=== PATIENT | female | born 1990 | race Caucasian/White ===

== ENCOUNTER → 2018-07-01 | Outpatient (CLI) | payer OTHER, SELFPAY ==
[2018-07-01 15:48] LABS: Hematocrit 36.5 % (37-47); Hemoglobin 12.3 g/dl (12.0-15.0); Mean Corp Hgb Conc 33.7 g/gl (32-36); Mean Corpuscular Hgb 30.8 pg (27.0-32.0); Mean Corpuscular Volume 91.3 fL (81-99); Mean Platelet Vol. 9.2 fl (6.2-12.0); Platelet Count 264 K/mm3 (150-450); RBC Distribution Width CV 13.2 % (11.6-14.6); RBC Distribution Width SD 43.9 fl (35.1-43.9)
[2018-07-01 15:50] LABS: Scan Indicated on CBC? Y/N NO
[2018-07-01 16:04] LABS: Glucose Challenge Gest 1H 50g 117 mg/dL (70-140)
== END | disposition home or self-care (01) ==
PROVIDERS: Visit Provider Obstetrics & Gynecology
DX: Z34.83 Encounter for supervision of other normal pregnancy, third trimester (principal)
CPT/HCPCS: 36415; 82950; 85027

== ENCOUNTER → 2018-07-29 10:26 | Outpatient (CLI) | payer OTHER, SELFPAY | LOC: LABSPEC 10:27 | PROVIDERS: Visit Provider Obstetrics & Gynecology | DX: Z36.85 Encounter for antenatal screening for Streptococcus B (principal) | CPT/HCPCS: 87081 ==

== ENCOUNTER → 2018-08-10 17:20 | Outpatient (CLI) | payer OTHER, SELFPAY | PROVIDERS: Referring Provider Obstetrics & Gynecology; Visit Provider Obstetrics & Gynecology | DX: Z36.85 Encounter for antenatal screening for Streptococcus B (principal) | CPT/HCPCS: 87081 ==

== ENCOUNTER 2018-09-17 19:12 | Inpatient (IN) | payer OTHER, SELFPAY ==
--- NOTE | 2018-09-16 14:49 | PCM.HPOB.BLA ---
History and Physical Date of Admission: 09/17/18 OB HISTORY AND PHYSICAL EXAMINATION History of this : 28 yo female Ab0 with EDC 09/09/2018 by 6 weeks Ultrasound, presents to Labor and Delivery for induction of labor postdates and oligohydramnios at 41 1/7 wk EGA. care remarkable for : Blood Type - A POS Rubella - IMMUNE 03/01/18 GBS negative. 1.) Prefers natural childbirth, was hoping no induction 2.) Previously declined MSAFP. Declines CF testing 3.) ASCUS Pap, follow up 4.) LATE transfer of care at 30+ wk EGA. Pertinent Past Medical History: negative. Allergies: No Known Allergies Medications: None Review of Systems: Non-contributory PHYSICAL EXAMINATION General Appearence: 28 yo female in no acute distress Vital Signs: AF, VSS Heart: RRR without rubs or gallops Lungs: CTA x 2 Breasts: deferred Abdomen: gravid Pelvis: adequate Cervix: closed, firm, anterior, -3 Presentation: cephalic Fetus: Size: 8# 10 oz EFW by sono 09/16/18 Movement: present Heart: present Impression /Plan: Intrauterine . Induction of labor at 41 1/7 wk for postdates and oligohydramnios. Advised of plan: Cytotec. To possible Turner bulb vs AROM and pitocin. Plan for induction starting on 09/17/18 at 7 pm H and P generated at time of patient encounter 09/16/18 See progress notes for changes. Physician's Signature: Date: Josey Liu MD 09/16/18 1196
[2018-09-17] MEDS: 0.9% Saline Lock 10 ML Syringe IV (19:50)
[2018-09-17 20:08] LABS: Absolute Lymphocyte Count 1.12 X10^3/uL (0.83-4.51); Absolute Neutrophil Count 6.1 X10^3/uL (2.0-7.7); Basophil# 0.03 X10^3/uL; Basophil% 0.4 % (0-1); Eosinophil# 0.11 X10^3/uL; Eosinophils% 1.4 % (0-5); Hematocrit 37.2 % (37-47); Hemoglobin 12.9 g/dL (12.0-15.0); Lymphocyte # 1.12 X10^3/ul (4.0); Mean Corp Hgb Conc 34.7 g/dL (32-36); Mean Corpuscular Hgb 31.2 pg (27.0-32.0); Mean Corpuscular Volume 89.9 fL (81-99); Mean Platelet Vol. 9.3 fl (6.2-12.0); Monocyte# 0.63 X10^3/uL; Monocyte% 7.9 % (0-10); NRBC Flagged by Analyzer 0 % (0-5); Neutrophil # 6.07 X10^3/uL (2.7-7.7); Neutrophil % 75.9 % (47-70); Platelet Count 227 K/mm3 (150-450); RBC Distribution Width CV 12.3 % (11.6-14.6); RBC Distribution Width SD 40.5 fl (35.1-43.9); Red Blood Count 4.14 M/mm3 (4.2-5.4)
[2018-09-17 20:16] VITALS: BMI 25.4
--- NOTE | 2018-09-17 21:23 | PCM.PN.BLA ---
Progress Note LABOR PROGRESS NOTE 28yo G1 @ 41 1/7 wga for IOL. PMH reviewed. AVSS, FHR 150, moderate variability, + accelerations, no decelerations. Cytotec given for unfavorable cervix per plan. Consents previously signed reviewed. Discussed with patient plan of care. Patient given opportunity to ask questions and questions answered to her satisfaction. Maternal and statuses reassuring.
[2018-09-18] MEDS: Lactated Ringers 1,000 ML 50 ML IV ×5 (01:39→22:20)
--- NOTE | 2018-09-18 09:36 | PCM.PN.BLA ---
Progress Note LABOR PROGRESS NOTE Reports strengthening contractions. + FM, some spotting. AVSS GEN - NAD, AAO x 3 FHR 150, moderate variability, , +10 x 10 accelerations, there is a 1 minute deceleration nadiring to 125 with late timing. TOCO 2/10 min A/P: 28yo G1 @ 41 2/7 wga, IOL with oligohydramnios, Cat II FHR -EFM reviewed - pt with Cat I-II FHR overall. Reassuring overall at this time with no recurrent decelerations. -Patient will finish break this am for food and shower, then plan to resume induction. -Recommend burrows bulb, discussed how performed, potential risks including amniotomy, abruption, spotting/bleeding, pain. -Patient in agreement with plan.
[2018-09-18] MEDS: 0.9% Normal Saline 100 ML IV.SOLN. INTRA-UTER (11:03)
--- NOTE | 2018-09-18 11:12 | PCM.PN.BLA ---
Progress Note LABOR PROGRESS NOTE No complaints. FHR 155 moderate variability, + accelerations, no decelerations TOCO 2/10 min SVE 1/60/-3, moderate and midposition A/P: 28yo G1 @ 41 2/7wga, IOL, Cat I FHR -Turner bulb placed, pt tolerated well -Observe for 1-2 hours, if no regular contractions will consider repeat dose of cytotec versus pitocin. - status reassuring
[2018-09-18] MEDS: Ondansetron 4 MG/2 ML Vial IV ×2 (11:41→17:02)
[2018-09-18] MEDS: Oxytocin 30 units/NS 500 ml 30 UNITS/500 ML IV.SOLN IV (13:56)
[2018-09-18] MEDS: fentaNYL-bupivacaine (epidural) 100 ML BAG EPIDURAL ×2 (18:40→23:09)
--- NOTE | 2018-09-18 19:13 | PCM.PN.BLA ---
Progress Note LABOR PROGRESS NOTE Pain improved with epidural, but limited relief on the left side. AVSS GEN - NAD, AAO x 3 FHr 130, moderate variability, + accelerations, + variable decelerations TOCO 3-4/10 min SVE 5/80/-2, midposition, soft A/P: 28yo G1 @ 41 2/7wga, IOL, Cat II FHR - status overall reassuring with moderate variability. Pitocin halved during epidural - unclear if FHR decelerations versus maternal heart rate observed during epidural given discontinuity. Will maintain pitocin at halved dose now. -SVE unchanged from prior. Discussed amniotomy. Patient declines at this time will plan to repeat exam in 2 hours and again consider amniotomy if cervix unchanged at that time. -Maternal status reassuring.
[2018-09-18] MEDS: Amnioinfusion- 0.9% NS 1,000 ML IV.SOLN. 300 ML INTRA-UTER (21:34)
[2018-09-18] MEDS: CHLORHEXIDINE GLUC 2% CLOTH 1 EACH TOWELETTE TOPICAL (22:45)
--- NOTE | 2018-09-18 23:00 | PCM.PN.BLA ---
Progress Note LABOR PROGRESS NOTE Patient comfortable with epidural. VSS GEN - NAD, AAO x 3 FHR - 125, moderate variability, + accelerations, + early decelertion, + variable deceleration TOCO 3/10 min SVE 6/80/-2 A/P: 28yo G1 @ 41 2/7wga with Cat II FHR -s/p amnioinfusion with initial improvement of variable decelerations, followed by series of prolonged decelerations each approximately 2 minutes. Pitocin discontinued, patient repositioned and O2 supplementation administered with improvement of FHR tracing and resolution of prolonged decelerations. -Discussed with patient section indications. Reviewed how performed, surgical r/b including but not limited to pain, bleeding complications, infection, injury to surrounding organs, need for further surgery, VTE, scarring as well potential effects on future and delivery including abnormal placentation with associated increased risks. Blood transfusion acceptable. Patient given opportunity to ask questions and questions answered to her satisfaction. -Will continue to observe at this time.
--- NOTE | 2018-09-18 23:55 | PCM.PN.BLA ---
Progress Note LABOR PROGRESS NOTE Tanja relates epidural more dense on right side. AVSS GEN - NAD, AAO x 3 FHR 120, moderate variability, + accelerations, no decelerations TOCO 3/10 min SVE deferred A/P: 28yo G1 @ 41 2/7wga with Cat I FHR -Reviewed with patient pitocin indications, benefits, risks and patient understands section as alternative. Following discussion, will resume pitocin. -Monitor closely.
[2018-09-19] VITALS (12 sets, daily range): BP systolic 86–120; BP diastolic 40–67; PULSE 86–114; RESP 15–18; TEMP 36.7–37.3; O2SAT 95–98
[2018-09-19] MEDS: fentaNYL-bupivacaine (epidural) 100 ML BAG EPIDURAL ×3 (03:48→13:41)
[2018-09-19] MEDS: Lactated Ringers 1,000 ML 50 ML IV ×2 (07:15→12:30)
--- NOTE | 2018-09-19 08:45 | PCM.PN.BLA ---
Progress Note LABOR PROGRESS NOTE Painfulness returning to left side. Reports right foot had some tingling previously and was swollen. Denies foot or leg pain. AVSS GEN - NAD, AAO x 3 FHR 140, moderate variability, + variable decelerations, no accelerations TOCO 3/10 min SVE 9/90/0 per recent RN exam EXT - trace LE edema of right foot and ankle, no cords palpable at calf or knee - No left lower extremity edema or cords felt A/P: 28yo G1 @ 41 3/7wga in active labor, meconium present with Cat II FHR -FHR variability maintained and overall reassuring -Will continue in labor -Will monitor lower extremities - tingling may be 2/2 epidural also
--- NOTE | 2018-09-19 12:30 | PCM.PN.BLA ---
Progress Note LABOR PROGRESS NOTE AVSS FHR 145, moderate variability, no accelerations, no decelerations TOCO 4/10 min SVE FD/+1 per RN WS exam 28yo G1 @ 41 3/7wga in labor, meconium, Cat II FHR -Overall reassuring status -Will start pushing
[2018-09-19] MEDS: Acetaminophen 500 MG Tablet 1000 MG PO (14:48)
--- NOTE | 2018-09-19 15:51 | PCM.PN.BLA ---
Progress Note LABOR PROGRESS NOTE Patient without complaints. Notes increasing pressure in bottom. Tm 101.5, BP 110/60 P 89 R 18 GEN - NAD, AAO x 3 FHR 160, moderate variability, + variable decelerations with pushing SVE FD/0 station with caput TOCO 3-4/10 min A/P: 28yo G1 @ 41 3/7wga in labor with Cat II FHR with suspected triple I -Prolonged ROM with fever - Ampicillin, Gentamicin ordered. Reviewed with pt indications, r/b -Will reposition in hands and knees x 30 minutes and reassess. If no further descent plan for section. - status overall reassuring.
[2018-09-19] MEDS: Sodium Citrate/Citric Acid 30 ML UDC PO (16:55)
[2018-09-19] MEDS: Lactated Ringers 1,000 ML 150 ML IV (17:00)
[2018-09-19] MEDS: Cefazolin 2 GM in 0.9% Normal Saline 100 ML IV (17:01)
[2018-09-19] MEDS: Oxytocin 30 units/NS 500 ml 30 UNITS/500 ML IV.SOLN 167 UNITS IV (17:08)
[2018-09-19] MEDS: Ketorolac 30 MG/ML Syringe IV ×2 (17:25→23:16)
--- NOTE | 2018-09-19 18:18 | OP.PCM_ITS ---
Problem List (1) 41 weeks gestation of Status: Acute (2) Chorioamnionitis in third trimester Status: Acute Qualifiers: Fetus number: single or unspecified fetus Qualified Code(s): O41.1230 - Chorioamnionitis, third trimester, not applicable or unspecified Comment: suspected triple I (3) delivery delivered Status: Acute Comment: T incision Report of Operation Description of Surgical Findings:: Normal tubes and ovaries reproduction production manager: Apple Dorsey Type of Anesthesia:: Epidural Anesthesiologist: Guerline Nevarez Specimen's removed: placenta Delivery Classification: Stat Final ESTRADA: 09/09/18 Gestational age: 41 Weeks and 3 Days Armstrong doctor who attended delivery (if requested by OB): Akosua Gilbert Indications: 28-year-old 1 at 41-3/7 weeks gestational age was advised to proceed with section. She was admitted at 41-1/7 weeks gestational age first induction of labor for oligohydramnios. She had received Cytotec followed by Turner bulb and Pitocin. She had progressed to fully dilated with arrest of descent despite 3-1/2 hours second stage. heart rate had remained category 2 with moderate variability during pushing. She is advised to proceed with section. While readying the patient for surgery there was a prolonged heart rate deceleration connor during to 60 bpm. A stat section was subsequently performed. Indications for : Arrrest of Descent, Nonreassuring Status Description of Procedure: Patient was taken to the operating room and placed in the dorsal supine position. Betadine prep was performed and patient was draped. The epidural was found to be adequate. A tendency on incision was made. The rectus fascia was at the midline bluntly. The peritoneum was entered bluntly and the peritoneal incision was extended. Bladder blade was placed into the abdomen. A low transverse hysterotomy was made using a scalpel to the level of the membranes. The hysterotomy was bluntly extended in a cephalad caudad fashion. The head was wedged in the pelvis. Assistance was performed with a hand from below however the head remained impacted and was unable to be elevated. The laparotomy and hysterotomy was extended at the midline with the hysterotomy extending into the mid segment of the uterus and the infant was delivered via breech extraction. The right, then left lower extremity was delivered to the level of the hips. The hips were elevated and using gentle bidirectional rotation was delivered to the shoulders, the extremities and head delivered. The cord was immediately doubly clamped and cut. The infant was passed to the awaiting nursery personnel and Pediatric Hospitalist. The placenta was expressed from the uterus. The uterus was exteriorized and cleared of debris. The transverse hysterotomy was prepared using 0 Vicryl running lock suture. The midline hysterotomy was repaired using 2 layers of 0 Vicryl running lock suture at the myometrium. A baseball stitch was performed at the uterine serosa in the mid segment using 3-0 Monocryl. A result of mattress suture was placed along the transverse hysterotomy for additional hemostasis with hemostasis obtained. Gordo was placed along the hysterotomy lines. Gloves were changed at this time. The peritoneum was reapproximated using 2-0 Vicryl. The rectus muscle was reapproximated using 0 Vicryl. The rectus fascia at the midline was reapproximated using 0 Vicryl running suture. The transverse fascial incision was reapproximated using oh strata fix. The subcutaneous tissue layer was reapproximated using 2-0 Vicryl. The skin was closed using 4-0 Monocryl. Steri-Strips were applied incision and Mepilex placed. The fundus was firm. Amniotic Membrane Rupture Type: Spontaneous Amniotic Fluid Description: Moderate meconium Placenta Disposition: Sent with transport team Drain: Turner to straight drain Fluids Replaced: 2000ml Cord Entanglement: Around neck x 2, loose Nuchal Cord Compression: With compression Cord Vessel Description: 3 Vessels Esitmated Blood Loss (ml): 600 Gender: Female (1 minute): 3 (5 minute): 5 Delayed cord clamping: No Pre-op Antibiotic Given: - - Azithromycin 500mg, Ancef 2g, Clindamycin 900mg Pt instructed on risks of surgery: Bleeding, Anesthesia Risks, Infection, Need for Future C-Sections, Injury to surrounding structure(s) including bowel and bladder Complications: None - Admit VTE Documentation VTE Present on Admission: No VTE Mechan Device Prophylaxis: SCD's VTE Pharm Prophylaxis ordered?: No
[2018-09-19] MEDS: Lactated Ringers 1,000 ML 100 ML IV ×2 (18:30→23:24)
--- NOTE | 2018-09-19 19:38 | PCM.DCCSEC ---
Discharge Diet: No Restrictions Discharge Activity: Return to Normal Activity, May Not Drive, May not drive while taking narcotic pain medications., May Shower, - - No tub bath May resume sexual activity in: 4-6 weeks Lifting Restrictions: 10 lb Call your doctor if your incision/area has: Continuous Slow Oozing, Sudden Increased Bleeding, Increased Pain/ Swelling, Increased Redness Suture Line Care: Avoid Pulling/Pushing Remove Dressing in (days):: 4 Cleanse incision/area with: Soap & Water Additional Instructions: If you experience any of the following, contact your healthcare provider. Bleeding that soaks a pad every hour for 2 hours Fever 100.4 or higher Unrelieved incision or abdominal pain Swelling, redness, discharge or bleeding from your incision or episiotomy site Your incision begins to separate Problems urinating (including inability to urinate or burning while urinating). Visual changes Severe headache Flu-like symptoms Pain or redness in one of both of your breasts Pain, warmth, tenderness or swelling in your legs, especially the calf area Frequent nausea and vomiting Symptoms of depression or anxiety If you experience any of the following, call 911 or go to the nearest Emergency Room. Chest pain Problems breathing Seizure activity Partial or complete paralysis of a body part, slurred speech, weakness or drooping of the face, or a sudden inability to walk or hold your balance Allergies/Adverse Reactions: Allergies No Known Allergies Allergy (Verified 09/17/18 20:15) Medications to take at Discharge Vit No.130/Iron/Folic [ Tablet] 1 tab PO DAILY 09/17/18 Breast Pump 1 pump MC PRN PRN #1 pump 09/20/18 Ibuprofen [Motrin] 600 mg PO Q8H PRN PRN #30 tab 09/20/18 Oxycodone [Oxyir] 5 - 10 mg PO Q6H PRN PRN 7 Days #20 tab 09/20/18 Senna/Docusate Sodium [Senokot-S] 1 - 2 tab PO DAILY PRN PRN #60 tab 09/20/18 The following prescriptions were given: Breast Pump 1 pump MC PRN PRN #1 pump PRN Reason: Not Specified Transmission Status: Sent to [facility] Ibuprofen [Motrin] 600 mg PO Q8H PRN PRN #30 tab PRN Reason: Mild Pain (-05/09) Transmission Status: Sent to [facility] Oxycodone [Oxyir] 5 - 10 mg PO Q6H PRN PRN 7 Days #20 tab PRN Reason: Mod-Severe Pain (-12/09) Transmission Status: Sent to [facility] Senna/Docusate Sodium [Senokot-S] 1 - 2 tab PO DAILY PRN PRN #60 tab PRN Reason: Constipation Transmission Status: Sent to [facility] Follow-Up: Call to make an appointment with your doctor for an incision check in 1-2 weeks. You will also need a 6 week post- follow up appointment. Test results from this visit will be discussed in further detail at your follow-up appointment, if applicable. Please Follow Up With: Noreen Liu MD When: 7-10 days Primary Care Physician: Melodie Mujica DO [Primary Care Provider] -
--- NOTE | 2018-09-19 19:51 | NURSING ---
Decision time for MALACHI c/s at 1833. Changed to STAT at 1655 after prolonged deceleration
[2018-09-19] MEDS: 0.9% Saline Lock 10 ML Syringe IV (23:17)
[2018-09-20] VITALS (18 sets, daily range): BP systolic 82–100; BP diastolic 40–50; PULSE 74–109; RESP 16–19; TEMP 36.2–37.5; O2SAT 96–100
--- NOTE | 2018-09-20 00:30 | PCM.PN.BLA ---
Progress Note PROGRESS NOTE Notified by RN patient BPs 80s/40s. Patient reports she is sore, but pain controlled overall. Denies nausea, vomiting, chest pain, shortness of breath. Feels well overall. Orthostatics reviewed and no orthostasis. RRR, LCTAB, abdomen soft, nontender, nondistended, no calf tenderness or lower extremity edema. Prior right lower extremity discomfort resolved. Will send CBC and continue to monitor BPs.
[2018-09-20 01:04] LABS: Hematocrit 30.9 % (37-47); Hemoglobin 10.7 g/dL (12.0-15.0); Mean Corp Hgb Conc 34.6 g/dL (32-36); Mean Corpuscular Hgb 31.5 pg (27.0-32.0); Mean Corpuscular Volume 90.9 fL (81-99); Mean Platelet Vol. 9.3 fl (6.2-12.0); Platelet Count 194 K/mm3 (150-450); RBC Distribution Width CV 12.5 % (11.6-14.6); RBC Distribution Width SD 41.4 fl (35.1-43.9); White Blood Count 17.2 K/mm3 (4.4-11.0)
--- NOTE | 2018-09-20 01:27 | NURSING ---
Dr. Ines Cooper at pt bedside @ 0020 for low blood pressures reading 80s/40s HR ranging in 100's. orthostatic blood pressures taken. pt sitting on side of bed during evaluation per provider. CBC ordered and will continue to monitor.
[2018-09-20] MEDS: Cefazolin 2 GM in 0.9% Normal Saline 100 ML IV ×2 (01:33→09:05)
--- NOTE | 2018-09-20 01:33 | NURSING ---
epidural catheter removed with blue tip intact @ 0000
--- NOTE | 2018-09-20 03:23 | NURSING ---
Dr. Ines Cooper on unit and updated on pt's resting blood pressures and overall pt was feeling. no new orders at this time
[2018-09-20 03:50] LABS: Absolute Lymphocyte Count 0.56 X10^3/uL (0.83-4.51); Absolute Neutrophil Count 15.2 X10^3/uL (2.0-7.7); Basophil# 0.05 X10^3/uL; Basophil% 0.3 % (0-1); Eosinophil# 0.22 X10^3/uL; Eosinophils% 1.3 % (0-5); Lymphocyte # 0.56 X10^3/ul (4.0); Lymphocyte % 3.3 % (19-41); Monocyte# 0.76 X10^3/uL; Monocyte% 4.5 % (0-10); NRBC Flagged by Analyzer 0 % (0-5); Neutrophil # 15.15 X10^3/uL (2.7-7.7); Neutrophil % 90.2 % (47-70); POSITIVE DIFFERENTIAL YES; POSITIVE MORPHOLOGY YES
[2018-09-20] MEDS: 0.9% Saline Lock 10 ML Syringe IV ×5 (05:33→23:40)
[2018-09-20] MEDS: Ketorolac 30 MG/ML Syringe IV ×4 (05:33→23:40)
[2018-09-20] MEDS: Lactated Ringers 1,000 ML 100 ML IV (07:11)
--- NOTE | 2018-09-20 08:30 | PCM.PN.OB ---
Patient Problems: Active and Suspected Problems 41 weeks gestation of (Acute) Chorioamnionitis in third trimester (Acute) suspected triple I delivery delivered (Acute) T incision Subjective: Pain controlled. OOB to chair. Denies nausea or vomiting. No flatus. Denies heavy lochia. Objective: AVSS - Physical Exam General: Alert, Oriented x3, Cooperative, No apparent distress HEENT: Atraumatic, Normocephalic Lungs: Clear to auscultation, Normal air movement Cardiovascular: Regular rate, Regular Rhythm, Normal S1, Normal S2 Abdomen: Bowel Sounds Present, Soft, Non Tender, - - soft, nontender, fundus firm and nontender, incisional dressings c/d/i Extremities: No edema, No Calf Tenderness Neurological: Neuro grossly intact Psych/Mental Status: Normal Affect, Appropriate, Alert and oriented to time, place, person, mood and affect Vital Signs Temp Pulse Resp BP Pulse Ox 97.9 F 80 16 100/46 L 100 09/20/18 12:33 09/20/18 13:00 09/20/18 13:00 09/20/18 12:33 09/20/18 13:00 Oxygen Delivery Method Room Air Weight: 78.018 kg Body Mass Index (BMI) 25.4 Intake and Output for Last 24 Hours 09/18/18 09/19/18 09/20/18 23:59 23:59 23:59 Intake Total 4066 / 4066 9486 / 9486 2166 / 2166 Output Total 2975 / 2975 2625 / 2625 Balance 4066 / 3066 6511 / 6511 -459 / -459 Laboratory Tests Past 24 Hrs 09/20/18 00:40 WBC 17.2 H RBC 3.40 L Hgb 10.7 L Hct 30.9 L MCV 90.9 MCH 31.5 MCHC 34.6 RDW Std Deviation 41.4 RDW Coeff of Camryn 12.5 Plt Count 194 MPV 9.3 Immature Gran % (Auto) 0.400 Neut % (Auto) 90.2 H Lymph % (Auto) 3.3 L [place] % (Auto) 4.5 Eos % (Auto) 1.3 Baso % (Auto) 0.3 Absolute Neuts (auto) 15.2 H Absolute Lymphs (auto) 0.56 L Absolute Nucleated RBC 0.00 Nucleated RBC % 0 [address] Review Reviewed Medical Necessity - Tobacco Use Smoking Status: Former smoker Assessment/Plan All Active Problems 41 weeks gestation of (Acute) Chorioamnionitis in third trimester (Acute) delivery delivered (Acute) 28yo POD#1 s/p PLTCS, hx chorioamnionitis -No evidence of persistent infection. BPs low, but remain stable and other vital signs unchanged. Additional doses Ancef ordered given beta splash for prep. -Rh positive -Infant transferred to [facility] -Pumping/ -d/c markos this am -Patient and parents with several questions regarding delivery - reviewed delivery events. -Routine postop care
[2018-09-20] MEDS: Senna/Docusate Sodium 1 Tablet PO (09:14)
[2018-09-20] MEDS: Acetaminophen 500 MG Tablet 1000 MG PO ×2 (09:15→19:36)
[2018-09-20 12:13] LABS: Pathologist Review Reviewed
--- NOTE | 2018-09-20 16:20 | NURSING ---
Patient out of shower at this time. Fundal assessment complete. Low transverse abdominal incision noted to be saturated. Removed at this time. New silver mepilex dressing placed using sterile technique with Bety Cai feed research technician at bedside.
[2018-09-20] MEDS: oxyCODONE 5 MG Tablet PO (20:45)
[2018-09-21] MEDS: oxyCODONE 5 MG Tablet PO (00:50)
[2018-09-21 02:33] VITALS: BP 104/50; PULSE 76; RESP 16; TEMP 36
[2018-09-21] MEDS: Ketorolac 30 MG/ML Syringe IV ×2 (05:38→12:13)
[2018-09-21] MEDS: 0.9% Saline Lock 10 ML Syringe IV ×2 (05:38→12:14)
[2018-09-21 06:08] LABS: Absolute Lymphocyte Count 1.14 X10^3/uL (0.83-4.51); Basophil# 0.04 X10^3/uL; Basophil% 0.3 % (0-1); Eosinophils% 1.5 % (0-5); Hematocrit 28.7 % (37-47); Hemoglobin 9.5 g/dL (12.0-15.0); Lymphocyte # 1.14 X10^3/ul (4.0); Lymphocyte % 8.8 % (19-41); Mean Corp Hgb Conc 33.1 g/dL (32-36); Mean Corpuscular Hgb 30.9 pg (27.0-32.0); Mean Corpuscular Volume 93.5 fL (81-99); Monocyte# 0.56 X10^3/uL; Monocyte% 4.3 % (0-10); NRBC Flagged by Analyzer 0 % (0-5); Neutrophil # 10.91 X10^3/uL (2.7-7.7); Neutrophil % 84.1 % (47-70); POSITIVE MORPHOLOGY YES; Platelet Count 193 K/mm3 (150-450); RBC Distribution Width CV 12.8 % (11.6-14.6); RBC Distribution Width SD 43.9 fl (35.1-43.9); Red Blood Count 3.07 M/mm3 (4.2-5.4)
[2018-09-21 06:21] LABS: Differential Indicated SCAN CRITERIA MET
[2018-09-21 06:39] LABS: Differential Comment SCANNED
[2018-09-21] MEDS: Senna/Docusate Sodium 1 Tablet PO (08:27)
[2018-09-21] MEDS: Prenatal Vits Tablet 1 TABLET PO (08:27)
[2018-09-21 09:30] VITALS: BP 106/60; PULSE 102; RESP 16; TEMP 36.6
[2018-09-21] MEDS: Acetaminophen 500 MG Tablet 1000 MG PO (09:50)
[2018-09-24 01:32] LABS: Rapid Plasmin Reagin (RPR) NONREACTIVE (NONREACTIVE)
--- NOTE | 2018-09-30 13:28 | PCM.DC.SUM ---
Discharge Date and Diagnosis Date of Admission: 09/17/18 Date of Discharge: 09/21/18 Hospital Course and Treatment Operations: - - section with t-incision Procedures: None Summary of Care Provided: The patient is a 28 year old Fgravida 1 admitted at 41 1/7 weeks gestation for scheduled induction of labor. She progressed to fully dilated with arrest of descent. She was treated for chorioamnionitis in labor. An emergent section was performed for non-reassuring status at 41 3/7 weeks gestation. The patient did well post-operatively and was discharged on postoperative day #2. - Physical Exam Vital Signs Temp Pulse Resp BP Pulse Ox 97.8 F 102 H 16 106/60 98 09/21/18 09:30 09/21/18 09:30 09/21/18 09:30 09/21/18 09:30 09/20/18 20:30 Oxygen Delivery Method Room Air Weight: 78.018 kg Body Mass Index (BMI) 25.4 Discharge Diet: No Restrictions Discharge Activity: Return to Normal Activity, May Not Drive, May not drive while taking narcotic pain medications., May Shower, - - No tub bath May resume sexual activity in: 4-6 weeks Call your doctor if your incision/area has: Continuous Slow Oozing, Sudden Increased Bleeding, Increased Pain/ Swelling, Increased Redness Suture Line Care: Avoid Pulling/Pushing Remove Dressing in (days):: 4 Cleanse incision/area with: Soap & Water Home Medications: Medications to take at Discharge Vit No.130/Iron/Folic [ Tablet] 1 tab PO DAILY 09/17/18 Breast Pump 1 pump MC PRN PRN #1 pump 09/20/18 Ibuprofen [Motrin] 600 mg PO Q8H PRN PRN #30 tab 09/20/18 Senna/Docusate Sodium [Senokot-S] 1 - 2 tab PO DAILY PRN PRN #60 tab 09/20/18 Following Prescrptions Were Given to Patient: Breast Pump 1 pump MC PRN PRN #1 pump PRN Reason: Not Specified Transmission Status: Received by [facility] Ibuprofen [Motrin] 600 mg PO Q8H PRN PRN #30 tab PRN Reason: Mild Pain (1-3) Transmission Status: Received by [facility] Senna/Docusate Sodium [Senokot-S] 1 - 2 tab PO DAILY PRN PRN #60 tab PRN Reason: Constipation Transmission Status: Received by [facility] Primary Care Physician: Melodie Mujica DO [Primary Care Provider] - Please Follow Up With: Noreen Lui MD When: 7-10 days Medical Necessity - Tobacco Use Smoking Status: Former smoker Meaningful Use Info Meaningful Use Diagnoses (Choose all that apply): None applicable
== END 2018-09-21 14:00 | disposition home or self-care (01) | DRG 786 ==
PROVIDERS: Admitting Provider Obstetrics & Gynecology; Family Provider Internal Medicine; PCP Internal Medicine; Visit Provider Obstetrics & Gynecology
DX: O76 Abnormality in fetal heart rate and rhythm complicating labor and delivery (principal); O41.1230 Chorioamnionitis, third trimester, not applicable or unspecified; O41.03X0 Oligohydramnios, third trimester, not applicable or unspecified; O48.0 Post-term pregnancy; O32.1XX0 Maternal care for breech presentation, not applicable or unspecified; O62.1 Secondary uterine inertia; O69.81X0 Labor and delivery complicated by cord around neck, without compression, not applicable or unspecified; O77.0 Labor and delivery complicated by meconium in amniotic fluid; Z37.0 Single live birth; Z3A.41 41 weeks gestation of pregnancy; Z87.891 Personal history of nicotine dependence
CPT/HCPCS: 36415; 59025; 59050; 76815; 85025; 86592; 86850; 86900; 94760; 99218; J7030; J7120; A4216; G0378; J2405

== ENCOUNTER → 2018-09-29 15:39 | Outpatient (CLI) | payer OTHER, SELFPAY ==
[2018-09-17 20:16] VITALS: BMI 25.4
[2018-09-29 16:43] LABS: Bacteria 0 SEEN /hpf (None Seen); Mucous, Urine 0 SEEN /hpf (<or=2+); Red Blood Cells-Urine 0 SEEN /hpf (0-5); Squamous Epithelial Cells - UA 0 SEEN /hpf (5-10)
[2018-09-29 17:43] LABS: Color, Urine Yellow (Yellow); Glucose, Dipstick Normal (Normal); Ketone-Dipstick Negative (Negative); Leukocyte Esterase-Dipstick 25 /ul (Negative); Nitrite-Dipstick Negative (Negative); Occult Blood-Urine 250 /ul (Negative); Protein-Dipstick 15 mg/dl (Negative); Urine Bilirubin Dipstick Negative (Negative); Urine Clarity Cloudy (Clear); Urine Urobilinogen Normal (Normal)
[2018-09-29 18:44] LABS: Amorphous Sediment 4+; Calcium Oxalate Crystals Ur 1+ /hpf (<or=2+); White Blood Cells 0-5 SEEN /hpf (0-5)
== END ==
PROVIDERS: Family Provider Internal Medicine; PCP Internal Medicine; Referring Provider Obstetrics & Gynecology; Visit Provider Obstetrics & Gynecology
DX: N39.0 Urinary tract infection, site not specified (principal)
CPT/HCPCS: 81001; 87086; 87088

== ENCOUNTER → 2018-11-12 16:13 | Outpatient (CLI) | payer OTHER, SELFPAY ==
[2018-11-17 12:34] LABS: HPV Reflexed? NOT INDICATED
== END ==
PROVIDERS: Visit Provider Obstetrics & Gynecology
DX: Z12.4 Encounter for screening for malignant neoplasm of cervix (principal)
CPT/HCPCS: 88175; G0145

== ENCOUNTER → 2020-04-26 11:28 | Outpatient (CLI) | payer OTHER, SELFPAY ==
[2020-04-26 10:44] VITALS: BMI 22.8
[2020-04-26 12:01] LABS: Absolute Lymphocyte Count 1.79 X10^3/uL (0.83-4.51); Absolute Neutrophil Count 3.6 X10^3/uL (2.0-7.7); Basophil# 0.06 X10^3/uL; Eosinophil# 0.08 X10^3/uL; Eosinophils% 1.3 % (0-5); Hematocrit 41.9 % (37-47); Hemoglobin 13.4 g/dL (12.0-15.0); Lymphocyte # 1.79 X10^3/ul (4.0); Mean Corpuscular Hgb 28.3 pg (27.0-32.0); Mean Corpuscular Volume 88.4 fL (81-99); Mean Platelet Vol. 9.3 fl (6.2-12.0); Monocyte# 0.46 X10^3/uL; Monocyte% 7.7 % (0-10); NRBC Flagged by Analyzer 0 % (0-5); Neutrophil # 3.57 X10^3/uL (2.7-7.7); Neutrophil % 59.8 % (47-70); Platelet Count 290 K/mm3 (150-450); RBC Distribution Width CV 12.5 % (11.6-14.6); RBC Distribution Width SD 40.8 fl (35.1-43.9); Red Blood Count 4.74 M/mm3 (4.2-5.4)
[2020-04-26 12:23] LABS: Thyroid Stim Hormone (TSH) 1.53 uIU/mL (0.358-3.74)
== END ==
PROVIDERS: PCP Internal Medicine; Referring Provider Obstetrics & Gynecology; Visit Provider Obstetrics & Gynecology
DX: N92.0 Excessive and frequent menstruation with regular cycle (principal); N94.6 Dysmenorrhea, unspecified; Z13.29 Encounter for screening for other suspected endocrine disorder
CPT/HCPCS: 36415; 84443; 85025

== ENCOUNTER → 2020-06-07 10:21 | Outpatient (CLI) | payer OTHER, SELFPAY ==
[2020-06-07 09:43] VITALS: BMI 23.6
[2020-06-07 10:52] LABS: Absolute Lymphocyte Count 1.19 X10^3/uL (0.83-4.51); Basophil# 0.04 X10^3/uL; Basophil% 0.5 % (0-1); Eosinophil# 0.04 X10^3/uL; Eosinophils% 0.5 % (0-5); Hematocrit 38.9 % (37-47); Hemoglobin 12.7 g/dL (12.0-15.0); Lymphocyte # 1.19 X10^3/ul (4.0); Lymphocyte % 15.3 % (19-41); Mean Corp Hgb Conc 32.6 g/dL (32-36); Mean Corpuscular Hgb 29.2 pg (27.0-32.0); Mean Corpuscular Volume 89.4 fL (81-99); Mean Platelet Vol. 9.1 fl (6.2-12.0); Monocyte# 0.48 X10^3/uL; Monocyte% 6.2 % (0-10); NRBC Flagged by Analyzer 0 % (0-5); Neutrophil # 6.02 X10^3/uL (2.7-7.7); Neutrophil % 77.1 % (47-70); Platelet Count 276 K/mm3 (150-450); RBC Distribution Width CV 12.7 % (11.6-14.6); RBC Distribution Width SD 41.8 fl (35.1-43.9); Red Blood Count 4.35 M/mm3 (4.2-5.4); White Blood Count 7.8 K/mm3 (4.4-11.0)
[2020-06-07 11:54] LABS: HIV - WCH Non-Reactive (Nonreactive); Hepatitis B Surface Antigen Non-Reactive (Nonreactive); Hepatitis C Antibody Non-Reactive (Nonreactive); Rubella IgG Reactive (Nonreactive); Syphilis Antibodies Non-reactive
[2020-06-07 13:52] LABS: Amphetamine Urine VISTA NEGATIVE (<1000 ng/mL); Barbiturate Urine VISTA NEGATIVE (< 200 ng/mL); Benzodiazepine Urine VISTA NEGATIVE (< 200 ng/mL); Cocaine Urine VISTA NEGATIVE (< 300 ng/mL); Ecstacy Urine VISTA NEGATIVE (< 500 ng/mL); Methadone Urine VISTA NEGATIVE (< 300 ng/mL); PCP Urine VISTA NEGATIVE (< 25 ng/mL); THC Urine VISTA NEGATIVE (< 50 ng/mL); Vista UDS pH Range 7
[2020-06-09 03:07] LABS: Chlamydia By Nucleic Acid AMP Negative (Negative)
[2020-06-09 09:00] LABS: Gonococcus By Nucleic Acid AMP Negative (Negative)
== END ==
PROVIDERS: PCP Internal Medicine; Referring Provider Obstetrics & Gynecology; Visit Provider Obstetrics & Gynecology
DX: Z34.90 Encounter for supervision of normal pregnancy, unspecified, unspecified trimester (principal)
CPT/HCPCS: 36415; 80307; 85025; 86703; 86762; 86780; 86803; 86850; 86900; 86901; 87086; 87088; 87340; 87491; 87591

== ENCOUNTER → 2020-10-10 11:24 | Outpatient (CLI) | payer OTHER, SELFPAY ==
[2020-10-10 10:53] VITALS: BMI 23.6
[2020-10-10 12:05] LABS: Absolute Lymphocyte Count 1.21 X10^3/uL (0.83-4.51); Basophil# 0.05 X10^3/uL; Basophil% 0.5 % (0-1); Eosinophil# 0.08 X10^3/uL; Eosinophils% 0.8 % (0-5); Hematocrit 36.5 % (37-47); Hemoglobin 12.1 g/dL (12.0-15.0); Lymphocyte # 1.21 X10^3/ul (0.83-4.51); Lymphocyte % 12.1 % (19-41); Mean Corp Hgb Conc 33.2 g/dL (32-36); Mean Corpuscular Hgb 30.2 pg (27.0-32.0); Mean Platelet Vol. 9.2 fl (6.2-12.0); Monocyte# 0.54 X10^3/uL; Monocyte% 5.4 % (0-10); NRBC Flagged by Analyzer 0 % (0-5); Neutrophil # 8.04 X10^3/uL (2.7-7.7); Neutrophil % 80.6 % (47-70); Platelet Count 260 K/mm3 (150-450); RBC Distribution Width CV 12.8 % (11.6-14.6); RBC Distribution Width SD 42.5 fl (35.1-43.9); Red Blood Count 4.01 M/mm3 (4.2-5.4)
[2020-10-10 12:32] LABS: Glucose Challenge Gest 1H 50g 111 mg/dL (70-140)
== END ==
LOC: PAVLAB 11:25 → LAB 11:41
PROVIDERS: PCP Internal Medicine; Referring Provider Obstetrics & Gynecology; Visit Provider Obstetrics & Gynecology
DX: Z34.80 Encounter for supervision of other normal pregnancy, unspecified trimester (principal)
CPT/HCPCS: 36415; 82950; 85025

== ENCOUNTER → 2020-12-12 12:06 | Outpatient (CLI) | payer OTHER, SELFPAY ==
--- NOTE | 2020-12-12 12:14 | US_ITS ---
STUDY: SECOND AND THIRD TRIMESTER OBSTETRICAL ULTRASOUND - LIMITED REASON FOR EXAM: Female, 30 years old growth LMP: 04/03/2020. PRIOR ULTRASOUND: None. TECHNIQUE: Transabdominal TECHNICAL QUALITY: Adequate. FINDINGS: There is a single intrauterine fetus. The fetus is in a cephalic presentation. There is demonstrated cardiac activity with a heart rate of 150 bpm. There is a normal amniotic fluid volume. The largest amniotic fluid pocket measures 3.1 cm x 3.9 cm. The amniotic fluid index (DUANE) is 12.1 cm. The placenta is fundal and right lateral in location and is not low lying. There are Grade 2 placental changes. The cervix measures 3.7 cm in length. BIOMETRY: BPD: 8.9 cm: 36 weeks, 1 days HC: 32.61 cm: 37 weeks, 0 days AC: 31.8 cm: 35 weeks, 6 days FL: 7.47 cm: 38 weeks, 2 days Age by LMP: 36 weeks, 1 days. ESTRADA by LMP: 01/08/2021. age by current US: 36 weeks, 6 days. ESTRADA by current US: 01/03/2021. Estimated weight: 2966 grams, +/- 433 grams, 63 percentile. US/OB Limited With Biometrics IMPRESSION: Single live intrauterine gestation with a mean gestational age of 36 weeks and 6 days. Electronically Signed: Jayy Vázquez MD at 15:13 EDT , Service support ,
== END ==
PROVIDERS: PCP Internal Medicine; Referring Provider Obstetrics & Gynecology; Visit Provider Obstetrics & Gynecology
DX: O09.299 Supervision of pregnancy with other poor reproductive or obstetric history, unspecified trimester (principal); Z3A.00 Weeks of gestation of pregnancy not specified
CPT/HCPCS: 76816; 87081

== ENCOUNTER → 2020-12-21 | Outpatient (CLI) | payer OTHER, SELFPAY | END | disposition home or self-care (01) | PROVIDERS: PCP Internal Medicine; Visit Provider Obstetrics & Gynecology | DX: Z34.93 Encounter for supervision of normal pregnancy, unspecified, third trimester (principal); Z3A.36 36 weeks gestation of pregnancy | CPT/HCPCS: 87635; U0005; U0003 ==

== ENCOUNTER 2020-12-26 05:35 | Inpatient (IN) | payer OTHER, SELFPAY ==
[2020-10-10 10:53] VITALS: BMI 23.6
--- NOTE | 2020-12-25 12:25 | HP.PCM.OB_ITS ---
Documented by User: Dr. 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 Maternal Data Information ESTRADA Calculator Estimated Delivery Date Method Current WG Current Estimate 01/08/21 LMP (Certain) 38w 1d PFSH PFSH Medical History (Updated 12/24/20 @ 10:05 by Bouchra Barton) Anxiety and depression Home Medications multivitamin no.47-iron fum 27 mg-folate no.1 1 mg-dha 300 mg capsule cap PO 05/29/20 [History Last Taken Unknown] Allergy/AdvReac Type Severity Reaction Status Date / Time No Known Allergies Allergy Verified 12/21/20 14:29 Family History Grandmother Breast cancer Surgical History (Updated 12/23/20 @ 23:[address] Laly Hooks MD) S/P Social History adopted: No household members: family housing: house number of children: 1 current occupational status: employed Smoking Status: Never smoker second hand exposure: No alcohol intake: current details: social substance use type: does not use caffeine: Yes what type of physical activity do you participate in: walking and aerobics seatbelt use: always do you feel safe at home: Yes additional social history: [employer] Patient works at [employer] History 2 Elective abortions Hx Para 1 Spontaneous abortions Hx # Term Pregnancies Ectopic pregnancies Hx # Pregnancies Multiple births # of living children 1 Past Pregnancies Del. Date Name GA/Weeks Outcome Route Bth Weight Gen Labor Lgth Anesthesia Del Locatn Provider FOB 09/19/18 Awilda 41 live - full term 9lbs 2oz Femal e [address] [facility] [place] Dr. Salina Gautam Delivery Date: 09/19/18 IOL d/t oligio; duodenal web. STAT csection due to arrest of descent. HR category 2 with moderate variability during pushing. Prolonged HR deceleration connor during to 60 bpm. Cord around neck x2 loose with compression. Moderate meconium in amniotic fluid. Noreen Severino Visit Details Expected Delivery Route/Plan RLTCS with SM - scheduled 01/02 at 0730 Labor Preferences- CB/BF classes: no labor support person: Dain pain management options preferred: CS : yes PP control planned: discussed Plans flu vaccine: no tdap vaccine: 10/26 rhogam: NA LARC form signed: yes Problem list reviewed and updated with the most current plan of care details and appropriate orders placed. Relevant counseling for the gestational age provided. Continue routine care and follow up unless otherwise noted in visit notes/problem list details OB Flowsheet Initial Weight: Not Recorded Date -?-?-?-?-?-?-?-?-?-?-?-?- EGA Weight BP Urine Prot -?-?-?-?--?-?-?-?-?-?-?-?- Glucose FHR FuHt Pres Dilation -?-?-?-?-?-?-?-?-?-?--?-?- Effaced St Visit Note 06/07/20 -?-?-?-?-?-?-?-?-?-?-?-?- 9w 2d 146 lb 124/82 -?-?-?-?-?-?-?-?-?-?-?-?- 185 -?-?-?-?-?-?-?-?-?-?-?-?- sm- CRL 2.8cons with Lmp 07/04/20 -?-?-?-?-?-?-?-?-?-?-?-?- 13w 1d 146 lb 2 oz 100/72 Nega tive -?-?-?-?-?-?-?-?-?-?-?-?- Negative 168 -?-?-?-?-?-?-?-?-?-?-?-?- GP - no cramping or bleeding. Anatomy ordered. PRR 08/08/20 -?-?-?-?-?-?-?-?-?-?-?-?- 18w 1d 149 lb 2 oz 98/60 Nega tive -?-?-?-?-?-?-?-?-?-?-?-?- Negative 155 -?-?-?-?-?-?-?-?-?-?-?-?- MH-no VB, LOF. A natomy US next week. Some back discomfort/carries 2 yr old. Chiro enc. 09/10/20 -?-?-?-?-?-?-?-?-?-?-?-?- 22w 6d 153 lb 6 oz 110/60 Nega tive -?-?-?--?-?-?-?-?-?-?-?-?- Negative 145 -?-?-?-?-?-?-?-?-?-?-?-?- GP - no ctx, LOF , VB, dFM. Anatomy nl. It's a girl! 10/10/20 -?-?-?-?-?-?-?-?-?-?-?-?- 27w 1d 162 lb 8 oz 122/70 Nega tive -?-?-?-?-?-?-?-?-?-?-?-?- Negative 169 28 -?-?-?-?-?-?-?-?-?-?-?-?- MH-NO Vb, LOF. G ood Fm. 28 wk labs, considering tdap. [facility] 10/26/20 -?-?-?-?-?-?-?-?-?-?-?-?- 29w 3d 168 lb 2 oz 110/72 Nega tive -?-?-?-?-?-?-?-?-?-?-?-?- Negative 145 29 -?-?-?-?-?-?-?-?-?-?-?-?- GP - no LOF, VB, DFM, ctx. TDAP given. Undecided on flu. 11/14/20 -?-?-?-?-?-?-?-?-?-?-?-?- 32w 1d 173 lb 8 oz 122/78 Nega tive -?-?-?-?-?-?-?-?-?-?-?-?- Negative 155 32 -?-?-?-?-?-?-?-?-?-?-?-?- GP - no ctx, LOF , VB, DFM. Denies complaints 11/30/20 -?-?-?-?-?-?-?-?-?-?-?-?- 34w 3d 174 lb 4 oz 108/60 Trac e -?-?-?-?-?-?-?-?-?-?-?-?- Negative 120 34 -?-?-?-?-?-?-?-?-?-?-?-?- GP - no LOF, VB, DFM, Ctx. Denies complaints. 12/12/20 -?-?-?-?-?-?-?-?-?-?-?-?- 36w 1d 175 lb 4 oz 110/70 Nega tive -?-?-?-?-?-?-?-?-?-?-?-?- Negative 125 36 Cephalic 0 .5 -?-?-?--?-?-?-?-?-?-?-?-?- 50 -3 GP - no LO F, VB, DFM, ctx. Denies complaints. GBS today. GP - no LOF, VB, DFM, ctx. D enies complaints. GBS today. Growth today. 12/21/20 -?-?-?-?-?-?--?-?-?-?-?-?- 37w 3d 110/80 -?-?-?-?-?-?-?-?-?-?-?-?- 130 39 Cephalic 0.5 -?-?-?-?-?-?-?-?-?-?-?-?- SM- lower abdomi nal discomfrot intermittently with increasing contracitons no vb lof good fm 12/26/20 -?-?-?-?-?-?-?-?-?-?-?-?- 38w 1d -?-?-?-?-?-?-?-?-?-?-?-?- -?-?-?-?-?-?-?-?--?-?-?-?- NST FHR Rate Baby A Baseline: 140 ROS Constitutional Constitutional: Reports systems reviewed and no addt'l complaints, except as documented ENT HEENT: Reports systems reviewed and no addt'l complaints, except as documented Cardiovascular Cardiovascular: Reports systems reviewed and no addt'l complaints, except as documented Respiratory/Chest Respiratory/Chest: Reports systems reviewed and no addt'l complaints, except as documented Gastrointestinal Gastrointestinal: Reports systems reviewed and no addt'l complaints, except as documented and nausea; Denies abdominal pain Genitourinary Genitourinary: Reports systems reviewed and no addt'l complaints, except as documented, contractions Details: present and frequency (regular ) and movement Details: present Musculoskeletal Musculoskeletal: Reports systems reviewed and no addt'l complaints, except as documented Integumentary Integumentary: Reports as per HPI Neurologic Neurologic: Reports systems reviewed and no addt'l complaints, except as documented Endocrine Endocrinology: Reports systems reviewed and no addt'l complaints, except as documented Vital Signs Vital Signs Vital Signs: Weight Body Mass Index (BMI) 23.6 Physical Exam Const alert, oriented x3 and healthy appearing Constitutional Narrative: uncomfortable with contractions HEENT normocephalic and moist oral mucous membranes Head and Scalp: atraumatic Neck full ROM, no lymphadenopathy, supple and thyroid normal General: trachea midline Thyroid: thyroid normal Lymph Lymphatic: no lymphadenopathy noted Chest inspection of chest normal Resp normal respiratory effort Cardio regular rate GI normal to inspection, nondistended, normoactive bowel sounds, soft to palpation and non-tender Inspection: gravid external exam normal Bimanual Exam - Vag & Uterus: uterus non-tender Manual OB Exam: estimated gestational size appropriate, presentation cephalic, dilated, effaced and station Extremity normal to inspection General Extremity: Negative for edema Skin no rashes or lesions noted Neuro deep tendon reflexes 2+ bilaterally Motor Exam: strength 5/5 throughout and clonus absent Psych mental status grossly normal Labs Labs Labs: Blood Type A POSITIVE Antibody Screen NEGATIVE Hct 36.5 % (37-47) L Hgb 12.1 g/dL (12.0-15.0) Pap Smear Negative Obstetrics US Syphilis Total Ab Non-reactive Rubella IgG Antibody Reactive (Nonreactive) Hep Bs Antigen Non-Reactive (Nonreactive) Neisseria gonorrhoeae DNA (KEVIN) Negative (Negative) HIV 1&2 Antibody Non-Reactive (Nonreactive) Glucose 1 Hr 50 gm 111 mg/dL (70-140) Rhogam given: No Assessment & Plan (1) H/O oligohydramnios in prior , currently : COMMENT: 36 (2) Supervision of other normal : COMMENT: PRR ESTRADA: 01/08/21 PC: Awilda Spouse: Dain (3) S/P : COMMENT: x1- T Incision; AoD, repeat csection done early due to T portion into mid muscular portion of uterus. cs scheduled 38 weeks (4) : QUALIFIERS: Weeks of gestation: 36 weeks Qualified Code(s): Z3A.36 - 36 weeks gestation of COMMENT: declines ntd genetic and carrier testing. Anatomy US normal; GBS NEG. COVID neg PLAN: plan RLTCS at 38 weeks due to history of t incision Documented by User: Dr. Catherine Gibbs DO 12/25/20 12:29 Maternal Data Information ESTRADA Calculator Estimated Delivery Date Method Current WG Current Estimate 01/08/21 LMP (Certain) 38w 1d PFSH PFSH Medical History (Updated 12/24/20 @ 10:05 by Bouchra Barton) Anxiety and depression Home Medications multivitamin no.47-iron fum 27 mg-folate no.1 1 mg-dha 300 mg capsule cap PO 05/29/20 [History Last Taken Unknown] Allergy/AdvReac Type Severity Reaction Status Date / Time No Known Allergies Allergy Verified 12/21/20 14:29 Family History Grandmother Breast cancer Surgical History (Updated 12/23/20 @ 23:[address] Laly Hooks MD) S/P Social History adopted: No household members: family housing: house number of children: 1 current occupational status: employed Smoking Status: Never smoker second hand exposure: No alcohol intake: current details: social substance use type: does not use caffeine: Yes what type of physical activity do you participate in: walking and aerobics seatbelt use: always do you feel safe at home: Yes additional social history: Dain- [employer] Patient works at [employer] History 2 Elective abortions Hx Para 1 Spontaneous abortions Hx # Term Pregnancies Ectopic pregnancies Hx # Pregnancies Multiple births # of living children 1 Past Pregnancies Del. Date Name GA/Weeks Outcome Route Bth Weight [facility] Awilda 41 live - full term 9lbs 2oz Femal e [address] [facility] [place] Dr. Salina Cooper Dain Delivery Date: 09/19/18 IOL d/t oligio; duodenal web. STAT csection due to arrest of descent. HR category 2 with moderate variability during pushing. Prolonged HR deceler ation connor during to 60 bpm. Cord around neck x2 loose with compression. Moderate meconium in amniotic fluid. Noreen Severino Visit Details Expected Delivery Route/Plan RLTCS with - scheduled 01/02 at 0730 Labor Preferences- CB/BF classes: no labor support person: Dain pain management options preferred: CS : yes PP control planned: discussed Plans flu vaccine: no tdap vaccine: 10/26 rhogam: NA LARC form signed: yes Problem list reviewed and updated with the most current plan of care details and appropriate orders placed. Relevant counseling for the gestational age provided. Continue routine care and follow up unless otherwise noted in visit notes/problem list details OB Flowsheet Initial Weight: Not Recorded Date -?-?-?-?-?-?-?-?-?-?-?-?- EGA Weight BP Urine Prot -?-?-?-?-?-?-?-?-?-?-?-?- Glucose FHR FuHt Pres Dilation -?-?-?-?-?-?-?-?-?-?-?-?- Effaced St Visit Note 06/07/20 -?-?-?-?-?-?-?-?-?-?-?-?- 9w 2d 146 lb 124/82 -?-?-?-?-?-?-?-?-?-?-?-?- 185 -?-?-?-?-?-?-?-?-?-?-?-?- sm- CRL 2.8cons with Lmp 07/04/20 -?-?-?-?-?-?-?-?-?-?-?-?- 13w 1d 146 lb 2 oz 100/72 Nega tive -?-?-?-?-?-?-?-?-?-?-?-?- Negative 168 -?-?-?-?-?-?-?-?-?-?-?-?- GP - no cramping or bleeding. Anatomy ordered. PRR 08/08/20 -?-?-?-?-?-?-?-?-?-?-?-?- 18w 1d 149 lb 2 oz 98/60 Nega tive -?-?-?-?-?-?-?-?-?-?-?-?- Negative 155 -?-?-?-?-?-?-?-?-?-?-?-?- MH-no VB, LOF. A natomy US next week. Some back discomfort/carries 4 yr old. Chiro enc. 09/10/20 -?-?-?-?-?-?-?-?-?-?-?-?- 22w 6d 153 lb 6 oz 110/60 Nega tive -?-?-?-?-?-?-?-?-?-?-?-?- Negative 145 -?-?-?-?-?-?-?-?-?-?-?-?- GP - no ctx, LOF , VB, dFM. Anatomy nl. It's a girl! 10/10/20 -?-?-?-?-?-?-?-?-?-?-?-?- 27w 1d 162 lb 8 oz 122/70 Nega tive -?-?-?-?-?-?-?-?-?-?-?-?- Negative 169 28 -?-?-?-?-?-?-?-?-?-?-?-?- MH-NO Vb, LOF. G ood Fm. 28 wk labs, considering tdap. Larc 10/26/20 -?-?-?-?-?-?-?-?-?-?-?-?- 29w 3d 168 lb 2 oz 110/72 Nega tive -?-?-?-?-?-?-?-?-?-?-?-?- Negative 145 29 -?-?-?-?-?-?-?-?-?--?-?-?- GP - no LOF, VB, DFM, ctx. TDAP given. Undecided on flu. 11/14/20 -?-?-?-?-?-?-?-?-?-?-?-?- 32w 1d 173 lb 8 oz 122/78 Nega tive -?-?-?-?-?-?-?-?--?-?-?-?- Negative 155 32 -?-?-?-?-?-?-?-?-?-?-?-?- GP - no ctx, LOF , VB, DFM. Denies complaints 11/30/20 -?-?-?-?-?-?-?-?-?-?-?-?- 34w 3d 174 lb 4 oz 108/60 Trac e -?-?-?-?-?-?-?-?-?-?-?-?- Negative 120 34 -?-?-?-?-?-?-?-?-?-?-?-?- GP - no LOF, VB, DFM, Ctx. Denies complaints. 12/12/20 -?-?-?-?-?-?-?-?-?-?-?-?- 36w 1d 175 lb 4 oz 110/70 Nega tive -?-?-?-?-?-?-?-?-?-?-?-?- Negative 125 36 Cephalic 0 .5 -?-?-?-?-?-?-?-?-?-?-?-?- 50 -3 GP - no LO F, VB, DFM, ctx. Denies complaints. GBS today. GP - no LOF, VB, DFM, ctx. D enies complaints. GBS today. Growth today. 12/21/20 -?-?-?-?-?-?-?-?-?-?-?-?- 37w 3d 110/80 -?-?-?-?-?-?-?-?-?-?-?-?- 130 39 Cephalic 0.5 -?-?-?-?-?-?-?-?-?-?-?-?- SM- lower abdomi nal discomfrot intermittently with increasing contracitons no vb lof good fm 12/26/20 -?-?-?-?-?-?-?-?-?-?-?-?- 38w 1d -?-?-?-?-?-?-?-?-?-?-?-?- -?-?-?-?-?-?-?-?-?-?-?-?- Labs Labs Labs: Blood Type A POSITIVE Antibody Screen NEGATIVE Hct 36.5 % (37-47) L Hgb 12.1 g/dL (12.0-15.0) Pap Smear Negative Obstetrics US Syphilis Total Ab Non-reactive Rubella IgG Antibody Reactive (Nonreactive) Hep Bs Antigen Non-Reactive (Nonreactive) Neisseria gonorrhoeae DNA (KEVIN) Negative (Negative) HIV 1&2 Antibody Non-Reactive (Nonreactive) Glucose 1 Hr 50 gm 111 mg/dL (70-140) Rhogam given: No
--- NOTE | 2020-12-25 12:27 | HP.PCM_ITS ---
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 Laly Hooks MD) S/P Social History adopted: No household members: family housing: house number of children: 1 current occupational status: employed Smoking Status: Never smoker second hand exposure: No alcohol intake: current details: social substance use type: does not use caffeine: Yes what type of physical activity do you participate in: walking and aerobics seatbelt use: always do you feel safe at home: Yes additional social history: [employer] Patient works at [employer] Review of Systems ROS Unobtainable: due to mental status and other Constitutional Constitutional: Reports systems reviewed and no addt'l complaints, except as documented; Denies as per HPI, change in weight, fatigue, fever(s), malaise, weakness or other Eyes Eyes: Reports systems reviewed and no addt'l complaints, except as documented; Denies as per HPI, change in vision or other ENT HEENT: Reports systems reviewed and no addt'l complaints, except as documented Respiratory/Chest Respiratory/Chest: Reports systems reviewed and no addt'l complaints, except as documented Gastrointestinal Gastrointestinal: Reports systems reviewed and no addt'l complaints, except as documented and as per HPI Genitourinary Genitourinary: Reports as per HPI Musculoskeletal Musculoskeletal: Reports systems reviewed and no addt'l complaints, except as documented Neurologic Neurologic: Reports systems reviewed and no addt'l complaints, except as documented Psychiatric Psychiatric: Reports systems reviewed and no addt'l complaints, except as documented Endocrine Endocrinology: Reports systems reviewed and no addt'l complaints, except as documented Hematologic/Lymphatic Hematologic/Lymphatic: Reports systems reviewed and no addt'l complaints, except as documented Vital Signs Vital Signs Vital Signs: Weight Body Mass Index (BMI) 23.6 Physical Exam Const alert, oriented x3 and no apparent distress HEENT normocephalic Head and Scalp: atraumatic Eyes EOMs intact bilaterally and conjunctivae normal Neck full ROM, no lymphadenopathy, supple and thyroid normal General: trachea midline Lymph Lymphatic: no lymphadenopathy noted Resp normal respiratory effort, no retractions, no use of accessory muscles and clear to auscultation bilaterally Cardio regular rhythm GI normal to inspection, nondistended, normoactive bowel sounds, soft to palpation, non-distended and no masses Inspection: Negative for abdominal distention Back/Spine no CVA tenderness Extremity normal to inspection Skin no rashes or lesions noted Neuro moves all extremities and deep tendon reflexes 2+ bilaterally Psych mental status grossly normal
--- NOTE | 2020-12-25 12:30 | PCM.DC ---
Discharge Instructions Diet Discharge Diet: No restrictions Activity Discharge Activity: May Not Drive (for 2 weeks or while taking narcotic pain medications.), May Shower and May Take a Tub Bath (in 7 days) May shower in (days): 0 May resume sexual activity in: 4-6 weeks Weight Bearing Status: Full weight bearing Lifting Restrictions: 20 pounds Dressing / Incision Call your doctor if your incision/area has: Continuous Slow Oozing, Sudden Increased Bleeding, Increased Pain/ Swelling, Increased Redness and Foul Smelling Discharge Call your doctor if you observe: Fever of 101 or Higher and Using more than 1 pad per hour (for 2 hours) Suture Line Care: Avoid Pulling/Pushing and Avoid Pinching/Bending Cleanse incision/area with: Soap & Water and Keep Dressing Clean & Dry Follow Up Care Please Follow Up With: Laly Hooks MD When: Call [phone] to make an appointment for an incision check in 1-2 weeks. Test Results: Test results from this visit will be discussed in further detail at your follow-up appointment, if applicable. Discharge Plan Admission Attending Provider: Laly Hooks Primary Care Provider: Melodie Mujica Discharge Orders/Prescriptions Prescriptions: No Action PNV-DHA 27 mg iron-1 mg -300 mg capsule PO RF: 0
[2020-12-26] VITALS (16 sets, daily range): BP systolic 95–117; BP diastolic 39–68; PULSE 58–96; RESP 12–18; TEMP 36.2–36.7; O2SAT 95–99; BMI 27.7
[2020-12-26] MEDS: Lactated Ringers 1,000 ML 999 ML IV (05:50)
[2020-12-26 06:08] LABS: Absolute Lymphocyte Count 1.98 X10^3/uL (0.83-4.51); Basophil# 0.03 X10^3/uL; Basophil% 0.3 % (0-1); Eosinophil# 0.15 X10^3/uL; Eosinophils% 1.6 % (0-5); Hematocrit 38.5 % (37-47); Hemoglobin 12.7 g/dL (12.0-15.0); Lymphocyte # 1.98 X10^3/ul (0.83-4.51); Lymphocyte % 20.6 % (19-41); Mean Corpuscular Hgb 29.7 pg (27.0-32.0); Mean Corpuscular Volume 90.2 fL (81-99); Mean Platelet Vol. 9.2 fl (6.2-12.0); Monocyte# 0.37 X10^3/uL; Monocyte% 3.8 % (0-10); NRBC Flagged by Analyzer 0 % (0-5); Neutrophil # 7.03 X10^3/uL (2.7-7.7); Neutrophil % 73.1 % (47-70); Platelet Count 256 K/mm3 (150-450); RBC Distribution Width CV 13.1 % (11.6-14.6); RBC Distribution Width SD 42.7 fl (35.1-43.9); Red Blood Count 4.27 M/mm3 (4.2-5.4); White Blood Count 9.6 K/mm3 (4.4-11.0)
[2020-12-26] MEDS: Acetaminophen 500 MG Tablet 1000 MG PO ×3 (06:18→18:03)
[2020-12-26] MEDS: Lactated Ringers 1,000 ML 150 ML IV (06:52)
[2020-12-26] MEDS: Sodium Citrate/Citric Acid 30 ML UDC PO (06:59)
[2020-12-26] MEDS: Cefazolin 2 GM in 0.9% Normal Saline 100 ML IV (07:29)
[2020-12-26] MEDS: Methylergonovine 0.2 MG/ML Ampul IM (07:50)
[2020-12-26] MEDS: Oxytocin 30 units/NS 500 ml 30 UNITS/500 ML IV.SOLN 167 UNITS IV (08:35)
[2020-12-26] MEDS: Ketorolac 30 MG/ML Syringe IV ×3 (09:50→22:28)
[2020-12-26] MEDS: Lactated Ringers 1,000 ML 100 ML IV (11:32)
[2020-12-26] MEDS: 0.9% Saline Lock 10 ML Syringe IV ×2 (16:49→22:29)
--- NOTE | 2020-12-26 17:37 | EX.PCM.OBRPT ---
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 Turner catheter was placed. The patient was placed in the dorsal supine position with leftward tilt. Patient was prepped and draped in the normal sterile fashion. Pfannenstiel skin incision was made with the scalpel and carried through to the underlying layer of fascia with the scalpel. Fascia was nicked in the midline and the incision extended laterally. The rectus bellies were dissected off superiorly and inferiorly with out complication both sharply and bluntly. The peritoneum was entered digitally. The incision was stretched and a low transverse uterine incision was made with the scalpel. The infant's head was delivered atraumatically followed by the anterior and posterior shoulders without complication the rest of the delivered. The cord was clamped and cut and the infant was handed off to awaiting nurse. The placenta was delivered spontaneously immediately following and was noted to be intact and have a three-vessel cord. The uterus was exteriorized cleared of all clots and debris, and the incision was closed in a double layer closure using #1 Monocryl. The ovaries and fallopian tubes were noted to be within normal limits. The uterus was returned to the maternal abdomen and gutters were cleared of all clots and debris. The peritoneum was closed with 3-0 Monocryl in a running fashion. Gloves were changed prior to fascial closure. Fascia was closed with 0 PDS in a running fashion. Subcutaneous tissue was copiously irrigated and the skin was closed with 3-0 Monocryl in a subcuticular fashion. Mepilex dressing was applied without complication. Patient was taken to recovery in stable condition. It was discussed with the patient that based on the clinical information obtained during this encounter, combined with her history, at this time I would recommend cesareans for future deliveries if further pregnancies are desired. Presentation: Positive for Vertex Amniotic Membrane Rupture Type: Artificial Amniotic Fluid Description: Clear Placenta Disposition: [facility] Cord Vessel Description: 3 Vessels Cord Entanglement: Around neck x 1, loose Infant A Gender: Male Delayed Cord Clamping: Yes Complications Risks of Surgery Discussed w/Patient: Bleeding, Infection, Need for Future C-Sections and Injury to surrounding structure(s) including bowel and bladder Vaginal Delivery Complication Complications: None Admit VTE Documentation VTE Present on Admission: No VTE Mechan Device Prophylaxis: SCD's Procedures Urinary/Genital [id number]: [id number] Delivery [facility]
--- NOTE | 2020-12-26 17:39 | PCM.DC ---
Discharge Instructions Diet Discharge Diet: No restrictions Activity Discharge Activity: May Not Drive (for 2 weeks or while taking narcotic pain medications.), May Shower and May Take a Tub Bath (in 7 days) May shower in (days): 0 May resume sexual activity in: 4-6 weeks Weight Bearing Status: Full weight bearing Lifting Restrictions: 20 pounds Dressing / Incision Call your doctor if your incision/area has: Continuous Slow Oozing, Sudden Increased Bleeding, Increased Pain/ Swelling, Increased Redness and Foul Smelling Discharge Call your doctor if you observe: Fever of 101 or Higher and Using more than 1 pad per hour (for 2 hours) Suture Line Care: Avoid Pulling/Pushing and Avoid Pinching/Bending Cleanse incision/area with: Soap & Water and Keep Dressing Clean & Dry Follow Up Care Please Follow Up With: Laly Hooks MD When: Call [phone] to make an appointment for an incision check in 1-2 weeks. Test Results: Test results from this visit will be discussed in further detail at your follow-up appointment, if applicable. Discharge Plan Admission Admit Date/Time: 12/26/20 05:35 Primary Reason for Your Visit: delivery Attending Provider: Laly Hooks Primary Care Provider: Melodie Mujica Discharge Orders/Prescriptions Prescriptions: New oxycodone-acetaminophen [Percocet] 5-325 mg tablet 1 tab PO Q6H PRN (Reason: pain) 7 Days Qty: 20 RF: 0 naproxen [naproxen] 500 MG tablet 500 mg PO BID PRN PRN (Reason: Pain) Qty: 30 RF: 1 No Action PNV-DHA 27 mg iron-1 mg -300 mg capsule 1 cap PO DAILY RF: 0 Referrals / Follow Up: Melodie Mujica DO [Primary Care Provider] - Disposition Disposition (needs filled in before D/C Order can be placed): Home, Self Care
[2020-12-27] VITALS: BP 92/45; PULSE 60; RESP 16; TEMP 36.7; O2SAT 97
[2020-12-27] MEDS: Acetaminophen 500 MG Tablet 1000 MG PO ×3 (00:10→12:24)
[2020-12-27] MEDS: Ketorolac 30 MG/ML Syringe IV (04:42)
[2020-12-27] MEDS: 0.9% Saline Lock 10 ML Syringe IV (04:42)
[2020-12-27 04:54] VITALS: BP 88/45; PULSE 60; RESP 14; TEMP 36.6; O2SAT 97
[2020-12-27 07:15] LABS: Hematocrit 34.5 % (37-47); Hemoglobin 11.3 g/dL (12.0-15.0); Mean Corp Hgb Conc 32.8 g/dL (32-36); Mean Corpuscular Volume 91.5 fL (81-99); Mean Platelet Vol. 9.3 fl (6.2-12.0); Platelet Count 235 K/mm3 (150-450); RBC Distribution Width CV 13.2 % (11.6-14.6); RBC Distribution Width SD 43.9 fl (35.1-43.9); Red Blood Count 3.77 M/mm3 (4.2-5.4); White Blood Count 9.6 K/mm3 (4.4-11.0)
--- NOTE | 2020-12-27 07:53 | NURSING ---
All charting by Rosalba Leblanc student nurse reviewed by this RN Rosalba Stevens.
[2020-12-27 07:55] VITALS: BP 97/54; PULSE 64; RESP 16; TEMP 36.3; O2SAT 98
[2020-12-27] MEDS: Senna/Docusate Sodium 1 Tablet PO (10:34)
[2020-12-27] MEDS: Naproxen 500 MG Tablet PO (10:41)
[2020-12-27] MEDS: Prenatal Vits Tablet 1 TABLET PO (12:24)
[2020-12-27 14:12] VITALS: BP 92/53; PULSE 64; RESP 16; TEMP 36.6; O2SAT 96
--- NOTE | 2020-12-27 14:27 | PCM.PN.OB ---
Subjective Subjective Patient doing well without complaints. Tolerating PO. Ambulating and voiding without difficulty. feeding well. Denies chest pain, shortness of breath, calf pain/swelling, fevers, chills, lightheadedness. Objective Data Objective Data Vital Signs: Vital Signs Temp Pulse Resp BP Pulse Ox 97.9 F 64 16 92/53 L 96 12/27/20 14:12 12/27/20 14:12 12/27/20 14:12 12/27/20 14:12 12/27/20 14:12 Oxygen Delivery Method Room Air Weight: 172 lb Body Mass Index (BMI) 27.7 Intake & Output: Intake and Output for Last 24 Hours 12/25/20 12/26/20 12/27/20 23:59 23:59 23:59 Intake Total 2515 / 2515 Output Total 1150 / 1150 Balance 1365 / 1365 Lab / Micro Data Result Diagrams: 12/27/20 06:56 Labs: Laboratory Results - last 24 hr 12/27/20 06:56: WBC 9.6, RBC 3.77 L, Hgb 11.3 L, Hct 34.5 L, MCV 91.5, MCH 30.0, MCHC 32.8, RDW Std Deviation 43.9, RDW Coeff of Camryn 13.2, Plt Count 235, MPV 9.3 ROS Constitutional Constitutional: Reports systems reviewed and no addt'l complaints, except as documented Cardiovascular Cardiovascular: Reports systems reviewed and no addt'l complaints, except as documented Respiratory/Chest Respiratory/Chest: Reports systems reviewed and no addt'l complaints, except as documented Gastrointestinal Gastrointestinal: Reports systems reviewed and no addt'l complaints, except as documented Physical Exam Const alert, oriented x3 and no apparent distress HEENT Head and Scalp: atraumatic Resp normal respiratory effort GI soft to palpation and non-tender Inspection: incision intact, healing well and drainage (none) Bimanual Exam - Vag & Uterus: uterus non-tender Uterus Palpation: uterus fundus firm (below Umbilicus) Assessment & Plan (1) delivery delivered: COMMENT: EVANGELINA girl 38 (2) : QUALIFIERS: Weeks of gestation: 36 weeks Qualified Code(s): Z3A.36 - 36 weeks gestation of COMMENT: declines ntd genetic and carrier testing. Anatomy US normal; GBS NEG. COVID neg (3) Supervision of other normal : COMMENT: PRR ESTRADA: 01/08/21 PC: Awilda Spouse: Dain (4) H/O oligohydramnios in prior , currently : COMMENT: 36 (5) S/P : COMMENT: x1- T Incision; AoD, repeat csection done early due to T portion into mid muscular portion of uterus. cs scheduled 38 weeks PLAN: s/p LTCS PPD # 1. routine post care 2. breast feeding- support given 3. rh positive 4. rubella immune
== END 2020-12-27 16:50 | disposition home or self-care (01) | DRG 788 ==
PROVIDERS: Admitting Provider Obstetrics & Gynecology; PCP Internal Medicine; Referring Provider Obstetrics & Gynecology; Visit Provider Obstetrics & Gynecology
PROC: 10D00Z1 Extraction of Products of Conception, Low, Open Approach (ICD-10-PCS; CPT 59514; principal; 2020-12-26 07:15)
DX: O69.81X0 Labor and delivery complicated by cord around neck, without compression, not applicable or unspecified (principal); Z3A.38 38 weeks gestation of pregnancy; Z37.0 Single live birth
CPT/HCPCS: 85025; 85027; 86850; 86900; 86901; 99218; J7120; A4216; G0378; J2405

== ENCOUNTER → 2020-12-28 | Outpatient (CLI) | payer OTHER, SELFPAY | END | disposition home or self-care (01) | PROVIDERS: PCP Internal Medicine; Visit Provider Obstetrics & Gynecology | DX: N89.8 Other specified noninflammatory disorders of vagina (principal) | CPT/HCPCS: 87077; 87086; 87088; 87186 ==

== ENCOUNTER → 2022-05-05 | Outpatient (CLI) | payer OTHER, SELFPAY | END | disposition home or self-care (01) | LOC: LABSPEC 14:25 | PROVIDERS: PCP Internal Medicine; Referring Provider Nurse Practitioner Women's Health; Visit Provider Nurse Practitioner Women's Health | DX: R30.0 Dysuria (principal) | CPT/HCPCS: 87077; 87086; 87088; 87186 ==

== ENCOUNTER → 2022-06-11 | Outpatient (CLI) | payer OTHER, SELFPAY ==
[2022-06-11 11:49] LABS: Vitamin D,25 Hydroxy 33.9 ng/mL
[2022-06-11 11:54] LABS: T4 Free Direct 0.94 ng/dL (0.76-1.46); Thyroid Stim Hormone (TSH) 0.95 uIU/mL (0.358-3.74)
[2022-06-19 10:08] LABS: HPV APTIMA, High Risk Negative (Negative)
== END | disposition home or self-care (01) ==
PROVIDERS: PCP Internal Medicine; Referring Provider Nurse Practitioner Women's Health; Visit Provider Nurse Practitioner Women's Health
DX: Z12.4 Encounter for screening for malignant neoplasm of cervix (principal); L65.9 Nonscarring hair loss, unspecified; R53.83 Other fatigue; Z13.29 Encounter for screening for other suspected endocrine disorder
CPT/HCPCS: 36415; 82306; 84439; 84443; 87624; 88175; G0145

== ENCOUNTER → 2022-10-16 | Outpatient (CLI) | payer OTHER, SELFPAY ==
[2022-10-16 10:49] LABS: Absolute Lymphocyte Count 1.54 X10^3/uL (0.83-4.51); Absolute Neutrophil Count 5.2 X10^3/uL (2.0-7.7); Basophil# 0.05 X10^3/uL; Basophil% 0.7 % (0-1); Eosinophil# 0.04 X10^3/uL; Eosinophils% 0.5 % (0-5); Hematocrit 36.7 % (37-47); Hemoglobin 11.6 g/dL (12.0-15.0); Lymphocyte # 1.54 X10^3/ul (0.83-4.51); Lymphocyte % 21.1 % (19-41); Mean Corp Hgb Conc 31.6 g/dL (32-36); Mean Corpuscular Hgb 28.5 pg (27.0-32.0); Mean Corpuscular Volume 90.2 fL (81-99); Mean Platelet Vol. 9.1 fl (6.2-12.0); Monocyte# 0.44 X10^3/uL; NRBC Flagged by Analyzer 0 % (0-5); Neutrophil # 5.19 X10^3/uL (2.7-7.7); Neutrophil % 71.3 % (47-70); Platelet Count 269 K/mm3 (150-450); RBC Distribution Width CV 13.2 % (11.6-14.6); RBC Distribution Width SD 43.8 fl (35.1-43.9); Red Blood Count 4.07 M/mm3 (4.2-5.4); White Blood Count 7.3 K/mm3 (4.4-11.0)
[2022-10-16 22:08] LABS: HIV - WCH Non-Reactive (Nonreactive); Hepatitis B Surface Antigen Non-Reactive (Nonreactive); Hepatitis C Antibody Non-Reactive (Nonreactive); Rubella IgG Reactive (Nonreactive); Syphilis Antibodies Non-reactive
[2022-10-17 15:09] LABS: Thyroglobulin Antibody < 1.0 IU/mL (0.0-0.9); Thyroid Peroxidase AB < 9 IU/mL (0-34)
[2022-10-20 22:06] LABS: Chlamydia By Nucleic Acid AMP Negative (Negative); Gonococcus By Nucleic Acid AMP Negative (Negative)
== END | disposition home or self-care (01) ==
PROVIDERS: PCP Internal Medicine; Referring Provider Obstetrics & Gynecology; Visit Provider Obstetrics & Gynecology
DX: Z34.90 Encounter for supervision of normal pregnancy, unspecified, unspecified trimester (principal); Z3A.00 Weeks of gestation of pregnancy not specified
CPT/HCPCS: 36415; 85025; 86376; 86703; 86762; 86780; 86800; 86803; 86850; 86900; 86901; 87086; 87340; 87491; 87591

== ENCOUNTER → 2022-11-14 | Outpatient (CLI) | payer OTHER, SELFPAY ==
--- NOTE | 2022-11-14 11:57 | US_ITS ---
STUDY: THYROID ULTRASOUND REASON FOR EXAM: Female, 32 years old. Thyroid enlargement TECHNIQUE: Ultrasound evaluation of the thyroid was performed with real-time and static ford-scale imaging. COMPARISON: None. FINDINGS: RIGHT LOBE: The right lobe of the thyroid gland is enlarged and measures 5.8 cm x 2.2 cm x 1.8 cm. There is a homogeneous echotexture. There are no demonstrated solid, cystic or complex lesions. LEFT LOBE: The left lobe of the thyroid gland is enlarged and measures 5.8 cm x 1.7 cm x 1.7 cm. There is a homogeneous echotexture. There are no demonstrated solid, cystic or complex lesions. ISTHMUS: The isthmus is enlarged and measures 5.1 mm. The regional lymph nodes are normal. US/Thyroid IMPRESSION: Thyromegaly. Electronically Signed: Jayy Vázquez MD at 13:23 EDT ,
== END | disposition home or self-care (01) ==
PROVIDERS: PCP Internal Medicine; Referring Provider Obstetrics & Gynecology; Visit Provider Obstetrics & Gynecology
DX: E04.9 Nontoxic goiter, unspecified (principal)
CPT/HCPCS: 76536

== ENCOUNTER → 2022-11-21 | Outpatient (CLI) | payer OTHER, SELFPAY | END | disposition home or self-care (01) | LOC: LABSPEC 16:34 | PROVIDERS: PCP Internal Medicine; Referring Provider Advanced Practice Midwife; Visit Provider Advanced Practice Midwife | DX: Z34.90 Encounter for supervision of normal pregnancy, unspecified, unspecified trimester (principal); Z3A.00 Weeks of gestation of pregnancy not specified | CPT/HCPCS: 87086 ==

== ENCOUNTER 2023-04-10 11:10 | Outpatient (CLI) | payer OTHER, SELFPAY ==
--- OUTSIDE RECORDS SUMMARY | 2023-04-10 11:35 | XMS RPT_ITS | CCD ---
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 Name Role Phone Oberbaltazarer, Melodie L Attending Unavailable Oberhauser, Melodie L Admitting Unavailable Oberhauser, Melodie L Primary Care Unavailable Chas Berrios Consulting Unavailable Chas Berrios Attending Unavailable Oberhauser, Melodie L Primary Care Unavailable Oberhauser, Melodie L Admitting Unavailable Oberhauser, Melodie L Attending Unavailable Oberhauser, Melodie L Primary Care Unavailable Oberhauser, Melodie L Admitting Unavailable Oberhauser, Melodie L Attending Unavailable Oberhauser, Melodie L Primary Care Unavailable Oberhauser, Melodie L Attending Unavailable Oberhauser, Melodie L Primary Care Unavailable Oberhauser, Melodie L Attending Unavailable Oberhauser, Melodie L Primary Care Unavailable Oberhauser, Melodie L Admitting Unavailable Matthew, Adelita Attending Unavailable Oberhauser, Melodie L Primary Care Unavailable Oberhauser, Melodie L Attending Unavailable Oberhauser, Melodie L Primary Care Unavailable Matthew, Adelita Attending Unavailable Oberhauser, Melodie L Primary Care Unavailable Matthew, Adelita Admitting Unavailable Matthew, Adelita Attending Unavailable Oberhauser, Melodie L Primary Care Unavailable Matthew, Adelita Attending Unavailable Oberhauser, Melodie L Primary Care Unavailable Matthew, Adelita Attending Unavailable Oberhauser, Melodie L Primary Care Unavailable Matthew, Adelita Attending Unavailable Oberhauser, Melodie L Primary Care Unavailable Matthew, Adelita Attending Unavailable Oberhauser, Melodie L Primary Care Unavailable Matthew, Adelita Admitting Unavailable Matthew, Adelita Admitting Unavailable Matthew, Adelita Attending Unavailable Oberhauser, Melodie L Primary Care Unavailable Matthew, Adelita Attending Unavailable Oberhauser, Melodie L Primary Care Unavailable Matthew, Adelita Admitting Unavailable Matthew, Adelita Attending Unavailable Melodie Mujica Primary Care Unavailable Matthew, Adelita Attending Unavailable ObMelodie santana Primary Care Unavailable Matthew, Adelita Attending Unavailable Obesther, Melodie Gordillo Primary Care Unavailable Melodie Mujica Unavailable Moomaw, Balwinder I Unavailable Unavailable Melodie Mujica Unavailable [phone] Unavailable Unavailable Emanuel, Mr. Haja Diop Attending Unavail able Oberhauser, Dr. Melodie Newell Primary Care Unava ilable [facility], Mr. Haja Diop Referring Unavail able Oberhauser, Dr. Melodie Newell Referring Unava ilable Oberbaltazarer, Dr. Melodie Newell Attending Unava ilable Oberchristina, Dr. Melodie Newell Primary Care Unava ilable Medications Completed/Discontinued Medications Medication Drug Class(es) Dates Sig (Normalized) Sig (Original) amoxicillin 875 mg / clavulanate 125 mg oral tablet (4 sources) Penicillin-class Antibacterial Start: 2 take 1 tablet by mouth twice daily Amoxicillin-Pot Clavulanate 875-125 MG Oral Tablet TAKE 1 TABLET BY MOUTH TWICE A DAY FOR 7 DAYS Quantity: 14 Refills: 0 Ordered: 20-Dec-2021 DO Start : 20-Dec-2021 Complete betamethasone 0.5 mg/ml / clotrimazole 10 mg/ml topical cream (1 source) Azole Antifungal, Corticosteroid Start: 1 End: 2 Clotrimazole-Betameth asone 1-0.05 % External Cream APPLY AND RUB IN A THIN FILM TO AFFECTED AREAS TWICE DAILY.(AM AND PM). Quantity: 1 Refills: 1 Ordered: 20-Apr-2020 Melodie Mujica DO Start : 20-Apr-2020 End : 25-Jun-2021 Complete cyclobenzaprine hydrochloride 5 mg oral tablet (2 sources) Muscle Relaxant Start: 3 take 1 tablet by mouth three times daily as needed Cyclobenzaprine HCl - 5 MG Oral Tablet TAKE 1 TABLET 3 TIMES DAILY NEEDED. Quantity: 30 Refills: 0 Ordered: 27-Mar-2022 Melodie Mujica DO Start : 27-Mar-2022 Active famotidine 20 mg oral tablet (4 sources) Histamine-2 Receptor Antagonist Start: 2 End: 3 take 1 tablet by mouth twice daily as needed, then take 1 tablet by mouth twice daily as needed Famotidine 20 MG Oral Tablet take 1 tablet twice daily for one wekktake 1 tablet twice daily as needed thereafter Quantity: 60 Refills: 0 Ordered: 25-Jun-2021 Haja Castellanos PA-C Start : 25-Jun-2021 End : 27-Mar-2022 Complete methylPREDNISolone 4 MG Oral Tablet Therapy Pack (2 sources) Start: 3 methylPREDNISolone 4 MG Oral Tablet Therapy Pack Please follow instructions in package Quantity: 1 Refills: 0 Ordered: 27-Mar-2022 Melodie Mujica DO Start : 27-Mar-2022 Active Problems Active Problems Problem Classification Problem Date Documented Da te Episodic/Chronic Allergic reactions (2 sources) Contact dermatitis; Translations: [Contact dermatitis and other eczema, unspecified cause] 09-17-2020 Episodic Cardiac dysrhythmias (4 sources) Palpitations; Translations: [Palpitations] Episodic Mycoses (4 sources) Dermatophytosis; Translations: [Dermatophytosis of unspecified site] Episodic Nonspecific chest pain (4 sources) Chest discomfort; Translations: [Other chest pain] Episodic Other lower respiratory disease (4 sources) Dyspnea; Translations: [Shortness of breath] Episodic Other screening for suspected conditions (not mental disorders or infectious disease) (2 sources) Patient encounter status; Translations: [Screening for lipoid disorders] Episodic Residual codes; unclassified (4 sources) History finding; Translations: [Other specified conditions influencing health status] Episodic Spondylosis; intervertebral disc disorders; other back problems (2 sources) Cervical radiculopathy; Translations: [Brachial neuritis or radiculitis NOS] Episodic Unclassified (2 sources) RED RASH/ BURNING PAINFUL TO THE TOUCH 09-17-2020 Past or Other Problems Problem Classification Problem Date Documented Da te Episodic/Chronic Unclassified (1 source) RED RASH/ BURING PAINFUL TO THE TOUCH 09-17-2020 Results Test Name Value Interpretation Reference Range Facil ity Vital Signs Date Time Vital Sign Value Performing Clinician Facility 03-27-2022 09:19-0500 Body height 167.64 cm Melodie L Oberhauser Work Phone: [facility] Work Phone: 03-27-2022 09:19-0500 Body mass index (BMI) [Ratio] 21.63 kg/m2 Melodie L Oberhauser Work Phone: [facility] Work Phone: 03-27-2022 09:19-0500 Body surface area Derived from formula 1.69 m2 Melodie L Oberhauser Work Phone: [facility] Work Phone: 03-27-2022 09:19-0500 Body weight 60.78 kg Melodie L Oberhauser Work Phone: [facility] Work Phone: 03-27-2022 09:19-0500 Diastolic blood pressure 64 mm[Hg] Melodie L Oberhauser Work Phone: [facility] Work Phone: 03-27-2022 09:19-0500 Heart rate 69 /min Melodie L Oberhauser Work Phone: [facility] Work Phone: 03-27-2022 09:19-0500 Systolic blood pressure 116 mm[Hg] Melodie L Oberhauser Work Phone: [facility] Work Phone: 06-25-2021 10:42-0400 Body height 167.64 cm Melodie L Oberhauser Work Phone: [facility] Work Phone: 06-25-2021 10:42-0400 Body mass index (BMI) [Ratio] 22.58 kg/m2 Melodie L Oberhauser Work Phone: [facility] Work Phone: 06-25-2021 10:42-0400 Body surface area Derived from formula 1.72 m2 Melodie L Oberhauser Work Phone: [facility] Work Phone: 06-25-2021 10:42-0400 Body temperature 97.8 [degF] Melodie L Oberhauser Work Phone: [facility] Work Phone: 06-25-2021 10:42-0400 Body weight 63.46 kg Melodie L Oberhauser Work Phone: [facility] Work Phone: 06-25-2021 10:42-0400 Diastolic blood pressure 63 mm[Hg] Melodie L Oberhauser Work Phone: [facility] Work Phone: 06-25-2021 10:42-0400 Heart rate 68 /min Melodie L Oberhauser Work Phone: [facility] Work Phone: 06-25-2021 10:42-0400 SaO2% (BldA) [Mass fraction] 99 % Melodie L Oberhauser Work Phone: [facility] Work Phone: 06-25-2021 10:42-0400 Systolic blood pressure 104 mm[Hg] Melodie L Oberhauser Work Phone: [facility] Work Phone: 09-17-2020 22:36-0400 Body height 167.6 cm Melodie Oberhauser Other Phone: [facility] 09-17-2020 22:36-0400 Body temperature 99.32 [degF] Melodie Oberhauser Other Phone: [facility] 09-17-2020 22:36-0400 Body weight 68.2 kg Melodie Mujica Other Phone: [facility] 09-17-2020 22:36-0400 Diastolic blood pressure 74 mm[Hg] Melodie Mujica Other Phone: [facility] 09-17-2020 22:36-0400 Heart rate 77 /min Melodie Mujica Other Phone: [facility] 09-17-2020 22:36-0400 Respiratory rate 16 /min Melodie Mujica Other Phone: [facility] 09-17-2020 22:36-0400 SaO2% (BldA) [Mass fraction] 99 % Melodie Mujica Other Phone: [facility] 09-17-2020 22:36-0400 Systolic blood pressure 117 mm[Hg] Melodie Mujica Other Phone: [facility] Encounters Encounter Date Encounter Type Care Provider Facility Start: 03-27-[address] Melodie Mujica Facility:[id number] Start: 03-27-2022 Periodic preventive med est patient 18-39 yrs Melodie Mujica Work Phone: [facility] Work Phone: Start: 06-27-2021 Chart Update Melodie Fonseca user Work Phone: [facility] Work Phone: Start: 06-25-2021 ambulatory Mr. Haja Diop Emanuel Facility:[id number] Start: 06-25-2021 Office outpatient vi sit 15 minutes Melodie Mujica Work Phone: [facility] Work Phone: Start: 09-17-2020 End: 09-17-2020 Emergency department patient visit Balwinder Mendoza [facility] Emergency 13 Start: 05-06-2018 End: 05-07-2018 Patient encounter procedure Adelita Matthew Facility:[facility] Start: 04-22-2018 End: 04-23-2018 Patient encounter procedure Adelita Matthew Facility:[facility] Start: 04-08-2018 End: 04-09-2018 Patient encounter procedure Adelita Matthew Facility:[facility] Start: 03-11-2018 End: 03-12-2018 Patient encounter procedure Adelita Matthew Facility:[facility] Start: 03-01-2018 End: 03-02-2018 Patient encounter procedure Adelita Matthew Facility:[facility] Start: 02-11-2018 End: 02-12-2018 Patient encounter procedure Adelita Matthew Facility:[facility] Start: 02-11-2018 End: 02-12-2018 Patient encounter procedure Adelita Matthew Facility:[facility] Start: 01-14-2018 End: 01-15-2018 Patient encounter procedure Adelita Matthew Facility:[facility] Start: 11-04-2017 Patient encounter procedure Adelita Matthew Facility:[facility] Start: 10-23-2017 End: 10-24-2017 Patient encounter procedure Adelita Matthew Facility:[facility] Start: 10-23-2017 End: 10-24-2017 Patient encounter procedure Adelita Matthew Facility:[facility] Start: 10-20-2017 End: 10-21-2017 Patient encounter procedure Melodie L Oberhauser Facility:[facility] Start: 09-11-2017 End: 09-12-2017 Patient encounter procedure Melodie L Oberhauser Facility:[facility] Start: 09-11-2017 End: 09-12-2017 Patient encounter procedure Melodie L Oberhauser Facility:[facility] Start: 08-26-2017 End: 08-26-2017 Patient encounter procedure Chas A Giles Facility:[facility] Start: 08-21-2017 End: 08-22-2017 Patient encounter procedure Melodie L Oberhauser Facility:[facility] Start: 08-20-2017 End: 08-21-2017 Patient encounter procedure Melodie L Oberhauser Facility:[facility] Start: 08-11-2017 End: 08-12-2017 Patient encounter procedure [facility] L [facility]haus[facility] Procedures Date Procedure Procedure Detail Performing Clinician section Melodie Gordillo Magnusjocelyn rhauser Work Phone: Immunizations Immunization Date Immunization Notes Care Provider Denzel yang 10-26-2020 tetanus toxoid, reduced diphtheria toxoid, and acellular pertussis vaccine, adsorbed Melodie Gordillo Magnuskrishroman Work Phone: [facility] Work Phone: Payers Date Payer Category Payer Private Health Insurance 1992 Unknown [id number] 2.16.84 0.1.966803.3.579.2. 1992 Unknown [id number] 2.16.84 0.1.724212.3.579.2. 1992 Unknown [id number] 2.16.84 0.1.289505.3.579.2 1992 Unknown [id number] 2.16.84 0.1.408054.3.579.2 1992 Unknown [id number] 2.16.84 0.1.944603.3.579.2 1992 Unknown [id number] 2.16.84 0.1.234981.3.579.2. 1992 Unknown [id number] 2.16.84 0.1.381257.3.579.2 1992 Unknown [id number] 2.16.84 0.1.862107.3.579.2. 1992 Unknown [id number] 2.16.84 0.1.683560.3.579.2. 1992 Unknown [id number] 2.16.84 0.1.878510.3.579.2 1992 Unknown [id number] 2.16.84 0.1.737400.3.579.2. 1992 Unknown [id number] 2.16.84 0.1.052578.3.579.2.717 1992 Unknown [id number] 2.16.84 0.1.941718.3.579.2.7 1992 Unknown [id number] 2.16.84 0.1.755696.3.579.2.7 1992 Unknown [id number] 2.16.84 0.1.106084.3.579.2.717 1992 Unknown [id number] 2.16.84 0.1.047246.3.579.2.7 1992 Unknown [id number] 2.16.84 0.1.409660.3.579.2.7 1992 Unknown [id number] 2.16.84 0.1.061659.3.579.2.7 1992 Unknown [id number] 2.16.84 0.1.741785.3.579.27 1992 Unknown [id number] 2.16. 840.1.366890.3.579.2.356 1992 Unknown [id number] 2.16. 840.1.851931.3.579.2.356 Unknown Unknown [id number] Social History Date Type Detail Facility [facility] Tobacco smoking consumption unknown [facility] Work Phone: History of Present illness Narrative Note Date & Type Note Facility History of Present illness Narrative Patient presents for evaluation of intermittent left chest pressure and shortness of breath. Patient states this has been going on for at least 8 months without chest pain or other constitutional signs and symptoms. Patient has had COVID twice and reports having had palpitations after most recent infection. Patient was scheduled for Holter monitor but was not able to comply due to insurance complications. Currently, the patient is asymptomatic. Patient does also admit to the possibility of anxiety as a cause. Patient admits to being an anxious person but denies panic attacks or any effect on ADLs it applies to anxiety. Also, patient reports having history of GERD. Patient states this was fairly severe while and states that afterwards, some acidic foods including onions, do cause GERD symptoms. No change in bowel or bladder habits. No nausea, vomiting, melena, or rectal bleeding. 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 [facility] Work Phone: Summary Purpose Family History Unknown Family Member Name Dates Details No pertinent family history: Other(V49.89, Z78.9) Status:Active Unknown Family Member Name Dates Details No pertinent family history: Other(V49.89, Z78.9) Status:Active Unknown Family Member Name Dates Details No pertinent family history: Other(V49.89, Z78.9) Status:Active Advance Directives No Advanced Directives Records FoundNo Advanced Directives Records FoundNo Advanced Directives Records FoundNo Advanced Directives Records FoundNo Advanced Directives Records Found Chief Complaint * Patient here today to be seen for left upper chest tightness with SOB x 1 year intermittently, worse x 1 week. Patient has noticed if she takes Tums the symptoms subside. Patient denies any heartburntype symptoms. * Patient mentions having 12/26/2020 @ [facility]. * 31 y/o female presents for annual check up and LT arm weakness * Pt states she has been having LT arm weakness and tingling x4 days * Does report hx of this issue * 31 y/o female presents for annual check up and LT arm weakness * Pt states she has been having LT arm weakness and tingling x4 days * Does report hx of this issue Additional Source Comments INFORMATION SOURCE (unrecogn ized section and content) DATE CREATED AUTHOR AUTHOR'S ORGANIZ ATION 05/08/2018 [facility] DATE CREATED AUTHOR AUTHOR'S ORGANIZ ATION 06/29/2021 [facility] DATE CREATED AUTHOR AUTHOR'S ORGANIZ ATION 03/27/2022 [facility] DATE CREATED AUTHOR AUTHOR'S ORGANIZ ATION 03/27/2022 [employer] <item> Privacy Markings (unrecogniz ed section and content) Section Author: Jennifer Ramirez PROHIBITION ON REDISCLOSURE OF CONFIDENTIAL INFORMATION This notice accompanies a disclosure of information concerning a client made to you with the consent of such client. FOR RECORDS PERTAINING TO PATIENTS WHO ARE OR HAVE BEEN ENROLLED IN A CHEMICAL DEPENDENCY/SUBSTANCEABUSE PROGRAM, SOME INFORMATION MAY BE OMITTED. This clinical summary was aggregated from multiple sources. Caution should be exercised in using it in the provision of clinical care. This summary normalizes information from multiple sources, and as a consequence, information in this document may materially change the coding, format and clinical context of patient data. In addition, data may be omitted in some cases. CLINICAL DECISIONS SHOULD BE BASED ON THE PRIMARY CLINICAL RECORDS. [employer] provides no warranty or guarantee of the accuracy or completeness of information in this document.
[2023-04-10 12:03] LABS: Absolute Lymphocyte Count 1.25 X10^3/uL (0.83-4.51); Absolute Neutrophil Count 9.1 X10^3/uL (2.0-7.7); Basophil# 0.06 X10^3/uL; Basophil% 0.5 % (0-1); Eosinophil# 0.09 X10^3/uL; Eosinophils% 0.8 % (0-5); Hematocrit 34.6 % (37-47); Hemoglobin 11.1 g/dL (12.0-15.0); Lymphocyte # 1.25 X10^3/ul (0.83-4.51); Lymphocyte % 11.3 % (19-41); Mean Corp Hgb Conc 32.1 g/dL (32-36); Mean Corpuscular Hgb 28.9 pg (27.0-32.0); Mean Corpuscular Volume 90.1 fL (81-99); Mean Platelet Vol. 9.1 fl (6.2-12.0); Monocyte# 0.52 X10^3/uL; Monocyte% 4.7 % (0-10); NRBC Flagged by Analyzer 0 % (0-5); Neutrophil # 9.08 X10^3/uL (2.7-7.7); Neutrophil % 81.8 % (47-70); Platelet Count 250 K/mm3 (150-450); RBC Distribution Width CV 13.2 % (11.6-14.6); RBC Distribution Width SD 43.3 fl (35.1-43.9); Red Blood Count 3.84 M/mm3 (4.2-5.4); White Blood Count 11.1 K/mm3 (4.4-11.0)
[2023-04-10 13:14] LABS: Glucose Challenge Gest 1H 50g 129 mg/dL (70-140)
[2023-04-10 13:16] LABS: HIV - WCH Non-Reactive (Nonreactive); Syphilis Antibodies Non-reactive
[2023-04-11 04:07] LABS: Thyroid Peroxidase AB 17 IU/mL (0-34)
== END 2023-04-10 23:59 | disposition home or self-care (01) ==
LOC: LAB 11:14
PROVIDERS: PCP Internal Medicine; Referring Provider Obstetrics & Gynecology; Visit Provider Obstetrics & Gynecology
DX: O99.281 Endocrine, nutritional and metabolic diseases complicating pregnancy, first trimester (principal); E04.9 Nontoxic goiter, unspecified; Z3A.12 12 weeks gestation of pregnancy; Z13.1 Encounter for screening for diabetes mellitus
CPT/HCPCS: 36415; 82950; 85025; 86376; 86703; 86780

== ENCOUNTER 2023-04-11 20:20 | Outpatient (CLI) | payer OTHER, SELFPAY ==
[2023-04-11 20:31] VITALS: BMI 28.3
--- OUTSIDE RECORDS SUMMARY | 2023-04-11 20:32 | XMS RPT_ITS | CCD ---
Author Name Unknown Address [address] [place] [address] Organization [facility] Care Team Providers Care Sales Supervisor Name Role Phone Oberbaltazarer, Melodie L Attending [...] Care Unavailable Matthew, Adelita Admitting Unavailable Matthew, Adleita Admitting Unavailable Matthew, Adelita Attending Unavailable Oberhauser, [...] Balwinder I Unavailable Unavailable Melodie Mujica Unavailable [phone] Unavailable Unavailable Emanuel, Mr. Haja Diop Attending Unavail able Oberhauser, Dr. Melodie Newell Primary [facility] Un[facility]able [facility], Mr. Haja Diop Referring Unavail able Oberhauser, [...] 167.64 cm Melodie L Oberhauser Work Phone: [facility] Work Phone: 03-27-2022 09:19-0500 Body mass index (BMI) [Ratio] 21.63 kg/m2 Melodie L Oberhauser Work Phone: [facility] Work Phone: 03-27-2022 09:19-0500 Body surface area Derived from formula 1.69 m2 Melodie L Oberhauser Work Phone: [facility] Work Phone: 03-27-2022 09:19-0500 Body weight 60.78 kg Melodie L Oberhauser Work Phone: [facility] Work Phone: 03-27-2022 09:19-0500 Diastolic blood pressure 64 mm[Hg] Melodie L Oberhauser Work Phone: [facility] Work Phone: 03-27-2022 09:19-0500 Heart rate 69 /min Melodie L Oberhauser Work Phone: [facility] Work Phone: 03-27-2022 09:19-0500 Systolic blood pressure 116 mm[Hg] Melodie L Oberhauser Work Phone: [facility] Work Phone: 06-25-2021 10:42-0400 Body height 167.64 cm Melodie L Oberhauser Work Phone: [facility] Work Phone: 06-25-2021 10:42-0400 Body mass index (BMI) [Ratio] 22.58 kg/m2 Melodie L Oberhauser Work Phone: [facility] Work Phone: 06-25-2021 10:42-0400 Body surface area Derived from formula 1.72 m2 Melodie L Oberhauser Work Phone: [facility] Work Phone: 06-25-2021 10:42-0400 Body temperature 97.8 [degF] Melodie L Oberhauser Work Phone: [facility] Work Phone: 06-25-2021 10:42-0400 Body weight 63.46 kg Melodie L Oberhauser Work Phone: [facility] Work Phone: 06-25-2021 10:42-0400 Diastolic blood pressure 63 mm[Hg] Melodie L Oberhauser Work Phone: [facility] Work Phone: 06-25-2021 10:42-0400 Heart rate 68 /min Melodie L Oberhauser Work Phone: [facility] Work Phone: 06-25-2021 10:42-0400 SaO2% (BldA) [Mass fraction] 99 % Melodie L Oberhauser Work Phone: [facility] Work Phone: 06-25-2021 10:42-0400 Systolic blood pressure 104 mm[Hg] Melodie L Oberhauser Work Phone: [facility] Work Phone: 09-17-2020 22:36-0400 Body height 167.6 cm Melodie Oberhauser Other Phone: [facility] 09-17-2020 22:36-0400 Body temperature 99.32 [degF] Melodie Oberhauser Other Phone: [facility] 09-17-2020 22:36-0400 Body weight 68.2 kg Melodie Mujica Other Phone: [facility] 09-17-2020 22:36-0400 Diastolic blood pressure 74 mm[Hg] Melodie Mujica Other Phone: [facility] 09-17-2020 22:36-0400 Heart rate 77 /min Melodie Mujica Other Phone: [facility] 09-17-2020 22:36-0400 Respiratory rate 16 /min Melodie Mujica Other Phone: [facility] 09-17-2020 22:36-0400 SaO2% (BldA) [Mass fraction] 99 % Melodie Mujica Other Phone: [facility] 09-17-2020 22:36-0400 Systolic blood pressure 117 mm[Hg] Melodie Mujica Other Phone: [facility] Encounters Encounter Date Encounter Type Care Provider Facility Start: 03-27-[address] Melodie Mujica Facility:[id number] Start: 03-27-2022 Periodic preventive med est patient 18-39 yrs Melodie uMjica Work Phone: [facility] Work Phone: Start: 06-27-2021 Chart Update Melodie Fonseca user Work Phone: [facility] Work Phone: Start: 06-25-2021 ambulatory Mr. Haja Diop Emanuel Facility:[id number] Start: 06-25-2021 Office outpatient vi sit 15 minutes Melodie Mujica Work Phone: [facility] Work Phone: Start: 09-17-2020 End: 09-17-2020 Emergency department patient visit Balwinder Mendoza [facility] Emergency 13 Start: 05-06-2018 End: 05-07-2018 Patient encounter procedure Adelita Matthew Facility:[facility] Start: 04-22-2018 End: 04-23-2018 Patient encounter procedure Adelita Matthew Facility:[facility] Start: 04-08-2018 End: 04-09-2018 Patient encounter procedure Adelita Matthew Facility:[facility] Start: 03-11-2018 End: 03-12-2018 Patient encounter procedure Adelita Matthew Facility:[facility] Start: 03-01-2018 End: 03-02-2018 Patient encounter procedure Adelita Matthew Facility:[facility] Start: 02-11-2018 End: 02-12-2018 Patient encounter procedure Adelita Matthew Facility:[facility] Start: 02-11-2018 End: 02-12-2018 Patient encounter procedure Adelita Matthew Facility:[facility] Start: 01-14-2018 End: 01-15-2018 Patient encounter procedure Adelita Matthew Facility:[facility] Start: 11-04-2017 Patient encounter procedure Adelita Matthew Facility:[facility] Start: 10-23-2017 End: 10-24-2017 Patient encounter procedure Adelita Matthew Facility:[facility] Start: 10-23-2017 End: 10-24-2017 Patient encounter procedure Adelita Matthew Facility:[facility] Start: 10-20-2017 End: 10-21-2017 Patient encounter procedure Melodie L Oberhauser Facility:[facility] Start: 09-11-2017 End: 09-12-2017 Patient encounter procedure Melodie L Oberhauser Facility:[facility] Start: 09-11-2017 End: 09-12-2017 Patient encounter procedure Melodie L Oberhauser Facility:[facility] Start: 08-26-2017 End: 08-26-2017 Patient encounter procedure Chas A [place] Facility:[facility] Start: 08-21-2017 End: 08-22-2017 Patient encounter procedure Melodie L Oberhauser Facility:[facility] Start: 08-20-2017 End: 08-21-2017 Patient encounter procedure Melodie L Oberhauser Facility:[facility] Start: 08-11-2017 End: 08-12-2017 Patient encounter procedure [facility]odie L Oberhauser [facility] Procedures Date Procedure Procedure Detail Performing Clinician section Melodie Gordillo Magnusjocelyn rhauser Work Phone: Immunizations Immunization Date Immunization Notes Care Provider Denzel yang 10-26-2020 tetanus toxoid, reduced diphtheria toxoid, and acellular pertussis vaccine, adsorbed Melodie Gordillo Magnuskrishroman Work Phone: [facility] Work Phone: Payers Date Payer Category Payer Private Health Insurance 1992 Unknown [id number] 2.16.84 0.1.079938.3.579.2. 1992 Unknown [id number] 2.16.84 0.1.513372.3.579.2. 1992 Unknown [id number] 2.16.84 0.1.608545.3.579.2 1992 Unknown [id number] 2.16.84 0.1.279807.3.579.2 1992 Unknown [id number] 2.16.84 0.1.817018.3.579.2 1992 Unknown [id number] 2.16.84 0.1.747130.3.579.2. 1992 Unknown [id number] 2.16.84 0.1.462483.3.579.2 1992 Unknown [id number] 2.16.84 0.1.278144.3.579.2. 1992 Unknown [id number] 2.16.84 0.1.264175.3.579.2. 1992 Unknown [id number] 2.16.84 0.1.292571.3.579.2 1992 Unknown [id number] 2.16.84 0.1.579395.3.579.2. 1992 Unknown [id number] 2.16.84 0.1.031777.3.579.2.717 1992 Unknown [id number] 2.16.84 0.1.782905.3.579.2.7 1992 Unknown [id number] 2.16.84 0.1.978974.3.579.2.7 1992 Unknown [id number] 2.16.84 0.1.749699.3.579.2.717 1992 Unknown [id number] 2.16.84 0.1.275325.3.579.2.7 1992 Unknown [id number] 2.16.84 0.1.254360.3.579.2.7 1992 Unknown [id number] 2.16.84 0.1.864857.3.579.2.7 1992 Unknown [id number] 2.16.84 0.1.865543.3.579.27 1992 Unknown [id number] 2.16. 840.1.505483.3.579.2.356 1992 Unknown [id number] 2.16. 840.1.260149.3.579.2.356 Unknown Unknown [id number] Social History Date Type Detail Facility [facility] Tobacco smoking consumption unknown [facility] [employer] [facility] Work Phone: History of [...] No nausea, vomiting, melena, or rectal bleeding. 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 [facility] Work Phone: Summary Purpose Family [...] symptoms. * Patient mentions having 12/26/2020 @ [facility]. * 31 y/o female presents for annual [...] DATE CREATED AUTHOR AUTHOR'S ORGANIZ ATION 05/08/2018 [facility] DATE CREATED AUTHOR AUTHOR'S ORGANIZ ATION 06/29/2021 [facility] DATE CREATED AUTHOR AUTHOR'S ORGANIZ ATION 03/27/2022 [facility] DATE CREATED AUTHOR AUTHOR'S ORGANIZ ATION 03/27/2022 [employer] <item> Privacy Markings (unrecogniz ed section and [...] BE BASED ON THE PRIMARY CLINICAL RECORDS. [employer] provides no warranty or guarantee of the accuracy or completeness of information in this document.
[2023-04-11 20:40] VITALS: BP 112/72; PULSE 109; TEMP 38.1; O2SAT 97
[2023-04-11 21:08] LABS: Color, Urine Yellow (Yellow); Glucose, Dipstick Normal (Normal); Ketone-Dipstick Negative (Negative); Leukocyte Esterase-Dipstick Negative /ul (Negative); Nitrite-Dipstick Negative (Negative); Occult Blood-Urine 10 /ul (Negative); Protein-Dipstick Negative (Negative); Urine Bilirubin Dipstick Negative (Negative); Urine Clarity Clear (Clear); Urine Urobilinogen Normal (Normal)
[2023-04-11] MEDS: Lactated Ringers 1,000 ML 999 ML IV (21:15)
[2023-04-11] MEDS: 0.9% Saline Lock 10 ML Syringe IV (21:15)
[2023-04-11 21:19] VITALS: TEMP 38.4
[2023-04-11] MEDS: Acetaminophen 500 MG Tablet 1000 MG PO (21:20)
[2023-04-11] MEDS: Betamethasone/Betamethasone 30 MG/5 ML Vial 12 MG IM (22:00)
[2023-04-11] MEDS: Lactated Ringers 1,000 ML 150 ML IV (22:18)
[2023-04-11 22:21] VITALS: BP 116/68; PULSE 125; PULSE 129; TEMP 37.5; O2SAT 98
[2023-04-11 22:43] LABS: Absolute Lymphocyte Count 0.68 X10^3/uL (0.83-4.51); Absolute Neutrophil Count 8.5 X10^3/uL (2.0-7.7); Basophil# 0.04 X10^3/uL; Basophil% 0.4 % (0-1); Eosinophil# 0.03 X10^3/uL; Eosinophils% 0.3 % (0-5); Hematocrit 35.4 % (37-47); Hemoglobin 11.5 g/dL (12.0-15.0); Lymphocyte # 0.68 X10^3/ul (0.83-4.51); Lymphocyte % 6.6 % (19-41); Mean Corp Hgb Conc 32.5 g/dL (32-36); Mean Corpuscular Hgb 29.4 pg (27.0-32.0); Mean Corpuscular Volume 90.5 fL (81-99); Mean Platelet Vol. 9.4 fl (6.2-12.0); Monocyte# 1.06 X10^3/uL; Monocyte% 10.3 % (0-10); NRBC Flagged by Analyzer 0 % (0-5); Neutrophil # 8.45 X10^3/uL (2.7-7.7); Neutrophil % 81.8 % (47-70); Platelet Count 226 K/mm3 (150-450); RBC Distribution Width CV 13.2 % (11.6-14.6); RBC Distribution Width SD 42.7 fl (35.1-43.9); Red Blood Count 3.91 M/mm3 (4.2-5.4); White Blood Count 10.3 K/mm3 (4.4-11.0)
[2023-04-11 22:55] LABS: ALB/GLOB Ratio 0.7 RATIO (0.9-2.4); AST(SGOT) 23 U/L (15-37); Alanine Aminotransfer ALT/SGPT 20 U/L (13-56); Alkaline Phosphatase 91 U/L (45-117); Anion Gap 5 (5-15); BUN 7 mg/dL (7-18); BUN/Creat Ratio 9.6 RATIO (10-20); Calcium,Total 8.6 mg/dL (8.5-10.1); Chloride 108 mmol/L (98-107); Creatinine, Serum 0.73 mg/dL (0.55-1.02); EST Glomerular Filtration Rate 99 mL/min (>60); Est Glom Filt Rate - Afr Amer 120 mL/min (>60); Estimated Creatinine Clearance 119.97 ml/min; Globulin 4.2 g/dL (2.2-4.2); Glucose 90 mg/dL (74-106); Potassium 3.6 mmol/L (3.5-5.1); Protein, Total 7.2 g/dL (6.4-8.2); Sodium Level 137 mmol/L (136-145)
[2023-04-11 23:20] VITALS: PULSE 103; O2SAT 98
[2023-04-11 23:21] VITALS: BP 120/66; PULSE 96; TEMP 36.9; O2SAT 99
[2023-04-12] VITALS (16 sets, daily range): BP systolic 113–117; BP diastolic 58–72; PULSE 99–125; TEMP 36.7–36.9; O2SAT 97–100
[2023-04-12 02:39] LABS: Group B Strep DNA By PCR Negative (Negative); Internal Control PASS; Probe Check PASS; Specimen Processing Control PASS
[2023-04-12] MEDS: Acetaminophen 500 MG Tablet 1000 MG PO ×2 (03:31→08:58)
--- NOTE | 2023-04-12 06:26 | US_ITS ---
INDICATION: pt covid +, possible prolonged FHR deceleration well being EXAMINATION: Ultrasound US Biophysical Profile W/O Nonst TECHNIQUE: Transabdominal pelvic ultrasound was performed. COMPARISON: No relevant prior comparison study available FINDINGS: INTRAUTERINE GESTATION(s): Single. HEART MOTION is 126 bpm. AMNIOTIC FLUID INDEX (DUANE): 14.3 BIOPHYSICAL PROFILE (BPP): 10/07 -- Breathin/2. -- Movement: 2/2. -- Tone: 2/2. --DUANE: 2/2. PRESENTATION: Cephalic PLACENTA: Anterior. US/Biophysical Prof W/O Non Stres IMPRESSION: Single live intrauterine with a biophysical profile of 10/07. Electronically Signed: Claire Courtney MD at 9:12 EST ,
[2023-04-12] MEDS: Lactated Ringers 1,000 ML 150 ML IV (07:44)
--- NOTE | 2023-04-12 09:41 | OB.TRI.HP_ITS ---
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 She was also found to have a fever of over 100.6. She has a history of T-ed uterine incision and is planned to have a repeat section in less than 3 weeks. Plan was to give steroids around 35 weeks. After arrival, contractions were noted on the monitor to be every 2-3 minutes. IV fluids were ordered and a flu and covid test were ordered. The COVID did come back positive and she was placed in isolation. The patient has been monitored over night now and states that the groin discomfort is better. She denies shortness of breath, chest pain, loss of fluid, decreased movement, or vaginal bleeding. A BPP was ordered today and patient was reassured that it is 8/8. She is now requesting discharge to home. Maternal Data Information ESTRADA Calculator Estimated Delivery Date Method Current WG Current Estimate 05/26/23 LMP (Certain) 33w 5d Other Estimates 05/28/23 Ultrasound #1 33w 3d PFSH PFSH Medical History Anxiety and depression delivery delivered depression Home Medications multivitamin no.47-iron fum 27 mg-folate no.1 1 mg-dha 300 mg capsule (PNV-DHA) 1 cap PO DAILY daily 05/29/20 [History Last Taken 04/11/23 09:00] Allergy/AdvReac Type Severity Reaction Status Date / Time No Known Allergies Allergy Verified 04/11/23 20:43 Family History Grandmother Breast cancer Surgical History S/P Social History adopted: No household members: family housing: house number of children: 2 current occupational status: employed 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 pets and animals: Yes pets and animals: dog(s) and other details: frog, 2 bunnies history of recent travel: Yes ([place] ) out of state: Yes out of country: No sexually active: Yes Smoking Status: Never smoker second hand exposure: No alcohol intake: current details: social- not while substance use type: does not use well-balanced diet: about half the time caffeine: Yes Type: coffee Number of servings: 1 eating out: 1-3 times/week during the past year weight has: increased > 10 lbs what type of physical activity do you participate in: walking frequency: 3-4 times per week duration: 15-30 minutes/day carol/catholic: [employer] seatbelt use: always do you feel safe at home: Yes additional social history: [employer] Patient works at [employer] History 3 Elective abortions Hx Para 2 Spontaneous abortions Hx # Term Pregnancies Ectopic pregnancies Hx # Pregnancies Multiple births # of living children 2 Past Pregnancies Del. Date Name GA/Weeks Outcome Route Bth Weight Gen Labor Lgth Anesthesia Del [facility] Provider FOB 09/19/18 Awilda 41 live - full term 9lbs 2oz Femal e 3 days epidural [facility] Dr. Salina Gautam 12/26/20 Myrna 37 live - full term Female 0 s junaid [facility] SM Delivery Date: 09/19/18 Last Updated by: Noreen Severino IOL d/t oligio; duodenal web. STAT csection due to arrest of descent. HR category 2 with moderate variability during pushing. Prolonged HR deceleration connor during to 60 bpm. Cord around neck x2 loose with compression. Moderate meconium in amniotic fluid. Delivery Date: 12/26/20 Last Updated by: Noreen Severino RLTCS Visit Details Expected Delivery Route/Plan for rpt section at 36-37 weeks, plan steroids at 35, patient prefers 37 Plans Covid status: [] Flu vaccine: Declines Tdap vaccine: declines Rhogam: na LARC form signed: [] movement and labor precautions reviewed. Problem list reviewed and updated with the most current plan of care details and appropriate orders placed. Relevant counseling for the gestational age provided. Continue routine care and follow up unless otherwise noted in visit notes/problem list details OB Flowsheet Initial Weight: Not Recorded Date -?-?-?-?-?-?-?-?-?-?-?-?- EGA Weight BP Urine Prot -?-?-?-?-?-?-?-?-?-?--?-?- Glucose FHR FuHt Pres Dilation -?-?-?-?-?-?-?-?-?-?-?-?- Effaced St Visit Note 10/16/22 -?-?-?-?-?-?-?-?-?-?-?-?- 8w 2d 145 lb 4 oz 121/80 -?-?-?-?-?-?-?-?-?-?-?-?- 178 -?-?-?-?-?-?-?-?-?-?-?-?- JV- CRL consiste nt with LMP. declines nipt. 11/14/22 -?-?-?-?-?-?-?-?-?-?-?-?- 12w 3d 147 lb 133/77 Negative -?-?-?-?-?-?-?-?-?-?-?-?- Negative 150 -?-?-?-?-?-?-?-?-?-?-?-?- SM- no vb lof cr amping 11/21/22 -?-?-?-?-?-?-?-?-?-?-?-?- 13w 3d 147 lb 8 oz 116/69 -?-?-?-?-?-?-?-?-?-?-?-?- 168 0 -?-?-?-?-?-?-?-?-?-?-?-?- KW-had gush of f luid last night and fearful of ROM. No vb/cramping. FHT on US. spec exam done and urine culture sent. patient reassured. 12/09/22 -?-?-?-?-?-?-?-?-?-?-?-?- 16w 0d 150 lb 2 oz 112/70 Nega tive -?-?-?-?-?-?-?-?-?-?-?-?- Negative 150 -?-?-?-?-?-?-?-?-?-?-?-?- -No VB, crampi ng. Feeling flutters. Denies concerns 01/01/23 -?-?-?-?-?-?-?-?-?-?-?-?- 19w 2d 154 lb 128/69 -?-?-?-?-?-?-?-?-?-?-?-?- 150 -?-?-?-?-?-?-?-?-?-?-?-?- KW- no vb/ctx. g ood fm. Anatomy US today. Its a BOY! 01/28/23 -?-?-?-?-?-?-?-?-?-?-?-?- w 1d 161 lb 4 oz 115/69 Nega tive -?-?-?-?-?-?-?-?-?-?-?-?- Negative 144 24 -?-?-?-?-?-?-?--?-?-?-?-?- JV- no complaint s at this time. rpt cs schedule request sent. pt wants to wait for 37 weeks. plan for steroids at 35 weeks . 03/11/23 -?-?-?-?-?-?-?-?-?-?-?-?- 29w 1d 167 lb 8 oz 119/76 Nega tive -?-?-?-?-?-?-?-?-?-?-?-?- Negative 143 32 -?-?-?-?-?-?-?-?-?-?-?-?- JV- no lof, vagi nal bleeding, or dec fm. 03/27/23 -?-?-?-?-?-?-?-?-?-?-?-?- 31w 3d 173 lb 115/67 -?-?-?-?-?-?-?-?-?-?-?-?- 145 32 -?-?-?-?-?-?-?-?-?-?-?-?- SM- no vb lof go od fm n oregular ctx discussed delivery planning. 04/10/23 -?-?-?-?-?-?-?-?-?-?-?-?- 33w 3d 176 lb 102/70 Negative -?-?-?-?-?-?-?-?-?-?-?-?- Negative 135 35 -?-?-?-?-?-?-?-?-?-?-?-?- SM- no vb lof go od fm no regular ctx ROS Constitutional Constitutional: Reports systems reviewed and no addt'l complaints, except as documented Gastrointestinal Gastrointestinal: Denies bloating, constipation, cramping, diarrhea, nausea or vomiting Genitourinary Genitourinary: Reports other Details: Denies vaginal odor, vaginal bleeding, or vaginal discharge ; Denies difficulty urinating or flank pain Physical Exam HEENT normocephalic Resp normal respiratory effort and normal air movement no CVA tenderness Extremity normal to inspection General Extremity: edema bilateral (trace ) NST FHR Rate Baby A Baseline: 140 Variability:: Moderate Accelerations:: 15 x 15 Decelerations:: None NST Reactive:: Yes FHR Category:: Category I Assessment & Plan (1) COVID-19 affecting in third trimester: COMMENT: baby asa started. RTO on day 6 of covid infection with a mask. (2) History of delivery: COMMENT: classical uterine incision- steroids at 35 weeks, deliver 37 weeks, RCS scheduled 05-07-23. steroids given 33 weeks 5 days (for early contractions - found to be covid infection) (3) Supervision of high-risk : QUALIFIERS: Trimester: second trimester Qualified Code(s): O09.92 - Supervision of high risk , unspecified, second trimester COMMENT: PRR , ESTRADA 05/26/23 boy PC Myrna Kaiser Dain (4) : QUALIFIERS: Weeks of gestation: 33 weeks Qualified Code(s): Z3A.33 - 33 weeks gestation of COMMENT: Declines genetic, ntd, & carrier testing. nl anatomy. (5) Enlarged thyroid: COMMENT: labs nl, US no mass PLAN: Plan s/p steroid #1, return tonight for 2nd dose continue tylenol, rest, and isolation. rto on day 6 of infection with a mask. 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 was only 1 cm and thick when presented initially. Charges/Coding Multi Select Codes Visit Charges Office Visit/Consults: 12486 OV L3 Est 20min Urinary/Genital Urinary/Genital CPT Codes: 66211-17 non-stress test Interp
== END 2023-04-12 09:50 | disposition home or self-care (01) ==
LOC: WPOUT 20:30 → WP 20:30
PROVIDERS: PCP Internal Medicine; Visit Provider Obstetrics & Gynecology
DX: O98.513 Other viral diseases complicating pregnancy, third trimester (principal); U07.1 COVID-19; O99.891 Other specified diseases and conditions complicating pregnancy; R10.2 Pelvic and perineal pain; Z3A.33 33 weeks gestation of pregnancy
CPT/HCPCS: 96360; 96361 ×2; 36415; 59025; 59050; 76819; 80053; 81002; 85025; 87081; 87631; 87653; 96372; 99221; J7120; A4216; G0378; J0702

== ENCOUNTER 2023-04-12 21:25 | Outpatient (CLI) | payer OTHER, SELFPAY ==
--- OUTSIDE RECORDS SUMMARY | 2023-04-12 21:30 | XMS RPT_ITS | CCD ---
Author Name Unknown Address [address] [place] [address] Organization [facility] Care Team Providers Care Evaporator Helper Name Role Phone Oberbaltazarer, Melodie L Attending [...] Oberhauser, Melodie L Primary Care Unavailable Matthew, Daelita Attending Unavailable Oberhauser, Melodie L Primary Care [...] Balwinder I Unavailable Unavailable Melodie Mujica Unavailable [phone] Unavailable Unavailable Emanuel, Mr. Haja Diop Attending Unavail able Oberhauser, Dr. Melodie Newell Primary Care Unava ilable [facility], Mr. Haja Diop Referring Unavail able Oberhauser, [...] 167.64 cm Melodie L Oberhauser Work Phone: [facility] Work Phone: 03-27-2022 09:19-0500 Body mass index (BMI) [Ratio] 21.63 kg/m2 Melodie L Oberhauser Work Phone: [facility] Work Phone: 03-27-2022 09:19-0500 Body surface area Derived from formula 1.69 m2 Melodie L Oberhauser Work Phone: [facility] Work Phone: 03-27-2022 09:19-0500 Body weight 60.78 kg Melodie L Oberhauser Work Phone: [facility] Work Phone: 03-27-2022 09:19-0500 Diastolic blood pressure 64 mm[Hg] Melodie L Oberhauser Work Phone: [facility] Work Phone: 03-27-2022 09:19-0500 Heart rate 69 /min Melodie L Oberhauser Work Phone: [facility] Work Phone: 03-27-2022 09:19-0500 Systolic blood pressure 116 mm[Hg] Melodie L Oberhauser Work Phone: [facility] Work Phone: 06-25-2021 10:42-0400 Body height 167.64 cm Melodie L Oberhauser Work Phone: [facility] Work Phone: 06-25-2021 10:42-0400 Body mass index (BMI) [Ratio] 22.58 kg/m2 Melodie L Oberhauser Work Phone: [facility] Work Phone: 06-25-2021 10:42-0400 Body surface area Derived from formula 1.72 m2 Melodie L Oberhauser Work Phone: [facility] Work Phone: 06-25-2021 10:42-0400 Body temperature 97.8 [degF] Melodie L Oberhauser Work Phone: [facility] Work Phone: 06-25-2021 10:42-0400 Body weight 63.46 kg Melodie L Oberhauser Work Phone: [facility] Work Phone: 06-25-2021 10:42-0400 Diastolic blood pressure 63 mm[Hg] Melodie L Oberhauser Work Phone: [facility] Work Phone: 06-25-2021 10:42-0400 Heart rate 68 /min Melodie L Oberhauser Work Phone: [facility] Work Phone: 06-25-2021 10:42-0400 SaO2% (BldA) [Mass fraction] 99 % Melodie L Oberhauser Work Phone: [facility] Work Phone: 06-25-2021 10:42-0400 Systolic blood pressure 104 mm[Hg] Melodie L Oberhauser Work Phone: [facility] Work Phone: 09-17-2020 22:36-0400 Body height 167.6 cm Melodie Oberhauser Other Phone: [facility] 09-17-2020 22:36-0400 Body temperature 99.32 [degF] Melodie Oberhauser Other Phone: [facility] 09-17-2020 22:36-0400 Body weight 68.2 kg Melodie Mujica Other Phone: [facility] 09-17-2020 22:36-0400 Diastolic blood pressure 74 mm[Hg] Melodie Mujica Other Phone: [facility] 09-17-2020 22:36-0400 Heart rate 77 /min Melodie Mujica Other Phone: [facility] 09-17-2020 22:36-0400 Respiratory rate 16 /min Melodie Mujica Other Phone: [facility] 09-17-2020 22:36-0400 SaO2% (BldA) [Mass fraction] 99 % Melodie Mujica Other Phone: [facility] 09-17-2020 22:36-0400 Systolic blood pressure 117 mm[Hg] Melodie Mujica Other Phone: [facility] Encounters Encounter Date Encounter Type Care Provider Facility Start: 03-27-[address] Melodie Mujica Facility:[id number] Start: 03-27-2022 Periodic preventive med est patient 18-39 yrs Melodie Mujica Work Phone: [facility] Work Phone: Start: 06-27-2021 Chart Update Melodie Fonseca user Work Phone: [facility] Work Phone: Start: 06-25-2021 ambulatory Mr. Haja Diop Emanuel Facility:[id number] Start: 06-25-2021 Office outpatient vi sit 15 minutes Melodie Mujica Work Phone: [facility] Work Phone: Start: 09-17-2020 End: 09-17-2020 Emergency department patient visit Balwinder Mendoza [facility] Emergency 13 Start: 05-06-2018 End: 05-07-2018 Patient encounter procedure Adelita Matthew Facility:[facility] Start: 04-22-2018 End: 04-23-2018 Patient encounter procedure Adelita Matthew Facility:[facility] Start: 04-08-2018 End: 04-09-2018 Patient encounter procedure Adelita Matthew Facility:[facility] Start: 03-11-2018 End: 03-12-2018 Patient encounter procedure Adelita Matthew Facility:[facility] Start: 03-01-2018 End: 03-02-2018 Patient encounter procedure Adelita Matthew Facility:[facility] Start: 02-11-2018 End: 02-12-2018 Patient encounter procedure Adelita Matthew Facility:[facility] Start: 02-11-2018 End: 02-12-2018 Patient encounter procedure Adelita Matthew Facility:[facility] Start: 01-14-2018 End: 01-15-2018 Patient encounter procedure Adelita Matthew Facility:[facility] Start: 11-04-2017 Patient encounter procedure Adelita Matthew Facility:[facility] Start: 10-23-2017 End: 10-24-2017 Patient encounter procedure Adelita Matthew Facility:[facility] Start: 10-23-2017 End: 10-24-2017 Patient encounter procedure Adelita Matthew Facility:[facility] Start: 10-20-2017 End: 10-21-2017 Patient encounter procedure Melodie L Oberhauser Facility:[facility] Start: 09-11-2017 End: 09-12-2017 Patient encounter procedure Melodie L Oberhauser Facility:[facility] Start: 09-11-2017 End: 09-12-2017 Patient encounter procedure Melodie L Oberhauser Facility:[facility] Start: 08-26-2017 End: 08-26-2017 Patient encounter procedure Chas A [place] Facility:[facility] Start: 08-21-2017 End: 08-22-2017 Patient encounter procedure Melodie L Oberhauser Facility:[facility] Start: 08-20-2017 End: 08-21-2017 Patient encounter procedure Melodie L Oberhauser Facility:[facility] Start: 08-11-2017 End: 08-12-2017 Patient encounter procedure [facility] L [facility]hauser [facility] Procedures Date Procedure Procedure Detail Performing Clinician section Melodie Gordillo Magnusjocelyn rhauser Work Phone: Immunizations Immunization Date Immunization Notes Care Provider Denzel yang 10-26-2020 tetanus toxoid, reduced diphtheria toxoid, and acellular pertussis vaccine, adsorbed Melodie Gordillo Magnuskrishroman Work Phone: [facility] Work Phone: Payers Date Payer Category Payer Private Health Insurance 1992 Unknown [id number] 2.16.84 0.1.829565.3.579.2. 1992 Unknown [id number] 2.16.84 0.1.275048.3.579.2. 1992 Unknown [id number] 2.16.84 0.1.072038.3.579.2 1992 Unknown [id number] 2.16.84 0.1.469634.3.579.2 1992 Unknown [id number] 2.16.84 0.1.505999.3.579.2 1992 Unknown [id number] 2.16.84 0.1.523452.3.579.2. 1992 Unknown [id number] 2.16.84 0.1.527241.3.579.2 1992 Unknown [id number] 2.16.84 0.1.511546.3.579.2. 1992 Unknown [id number] 2.16.84 0.1.483290.3.579.2. 1992 Unknown [id number] 2.16.84 0.1.515752.3.579.2 1992 Unknown [id number] 2.16.84 0.1.003279.3.579.2. 1992 Unknown [id number] 2.16.84 0.1.716103.3.579.2.717 1992 Unknown [id number] 2.16.84 0.1.370108.3.579.2.7 1992 Unknown [id number] 2.16.84 0.1.582381.3.579.2.7 1992 Unknown [id number] 2.16.84 0.1.688995.3.579.2.717 1992 Unknown [id number] 2.16.84 0.1.418371.3.579.2.7 1992 Unknown [id number] 2.16.84 0.1.361800.3.579.2.7 1992 Unknown [id number] 2.16.84 0.1.055260.3.579.2.7 1992 Unknown [id number] 2.16.84 0.1.818397.3.579.27 1992 Unknown [id number] 2.16. 840.1.660861.3.579.2.356 1992 Unknown [id number] 2.16. 840.1.631315.3.579.2.356 Unknown Unknown [id number] Social History Date Type Detail Facility [facility] Tobacco smoking consumption unknown [facility] [employer] [facility] Work Phone: History of [...] No nausea, vomiting, melena, or rectal bleeding. 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 * Patient mentions having 12/26/2020 @ [facility]. * 31 y/o female presents for annual [...] DATE CREATED AUTHOR AUTHOR'S ORGANIZ ATION 05/08/2018 [facility] DATE CREATED AUTHOR AUTHOR'S ORGANIZ ATION 06/29/2021 [facility] DATE CREATED AUTHOR AUTHOR'S ORGANIZ ATION 03/27/2022 [facility] DATE CREATED AUTHOR AUTHOR'S ORGANIZ ATION 03/27/2022 [employer] <item> Privacy Markings (unrecogniz ed section and [...] BE BASED ON THE PRIMARY CLINICAL RECORDS. [employer] provides no warranty or guarantee of the accuracy or completeness of information in this document.
[2023-04-12] MEDS: Betamethasone/Betamethasone 30 MG/5 ML Vial 12 MG IM (21:51)
--- NOTE | 2023-04-12 21:58 | NURSING ---
pt was on unit for 2nd dose of celestone. pt denies ROM, vaginal bleeding, and reports + movement. pt was discharged to home after celestone was given. ambulated off unit at 2155
== END 2023-04-12 21:55 | disposition home or self-care (01) ==
LOC: WPOUT 21:28 → WP 21:29
PROVIDERS: PCP Internal Medicine; Referring Provider Obstetrics & Gynecology; Visit Provider Obstetrics & Gynecology
DX: O98.513 Other viral diseases complicating pregnancy, third trimester (principal); U07.1 COVID-19; Z3A.33 33 weeks gestation of pregnancy
CPT/HCPCS: 96372; 99221; G0378; J0702

== ENCOUNTER 2023-05-07 05:45 | Inpatient (IN) | payer OTHER, SELFPAY ==
[2023-04-11 20:47] VITALS: RESP 16
[2023-04-11 22:21] VITALS: RESP 18
[2023-04-11 23:21] VITALS: RESP 16
[2023-04-12 07:18] VITALS: RESP 16
[2023-05-07] VITALS (33 sets, daily range): BP systolic 92–128; BP diastolic 55–79; PULSE 61–104; RESP 14–23; TEMP 36.6–36.8; O2SAT 98–100; BMI 29.0
--- OUTSIDE RECORDS SUMMARY | 2023-05-07 05:57 | XMS RPT_ITS | CCD ---
Author Name Unknown Address [address] [place] [address] Organization [facility] Care Team Providers Care Methods Engineer Name Role Phone Obkrisher, Melodie L Attending Unavailable Oberhauser, Melodie L [...] Balwinder I Unavailable Unavailable Melodie Mujica Unavailable [phone] Unavailable Unavailable Emanuel, Mr. Haja Diop Attending Unavail able Oberhauser, Dr. Melodie Newell Primary Care [facility] Haja Diop Referring Unavail [...] 167.64 cm Melodie L Oberhauser Work Phone: [facility] Work Phone: 03-27-2022 09:19-0500 Body mass index (BMI) [Ratio] 21.63 kg/m2 Melodie L Oberhauser Work Phone: [facility] Work Phone: 03-27-2022 09:19-0500 Body surface area Derived from formula 1.69 m2 Melodie L Oberhauser Work Phone: [facility] Work Phone: 03-27-2022 09:19-0500 Body weight 60.78 kg Melodie L Oberhauser Work Phone: [facility] Work Phone: 03-27-2022 09:19-0500 Diastolic blood pressure 64 mm[Hg] Melodie L Oberhauser Work Phone: [facility] Work Phone: 03-27-2022 09:19-0500 Heart rate 69 /min Melodie L Oberhauser Work Phone: [facility] Work Phone: 03-27-2022 09:19-0500 Systolic blood pressure 116 mm[Hg] Melodie L Oberhauser Work Phone: [facility] Work Phone: 06-25-2021 10:42-0400 Body height 167.64 cm Melodie L Oberhauser Work Phone: [facility] Work Phone: 06-25-2021 10:42-0400 Body mass index (BMI) [Ratio] 22.58 kg/m2 Melodie L Oberhauser Work Phone: [facility] Work Phone: 06-25-2021 10:42-0400 Body surface area Derived from formula 1.72 m2 Melodie L Oberhauser Work Phone: [facility] Work Phone: 06-25-2021 10:42-0400 Body temperature 97.8 [degF] Melodie L Oberhauser Work Phone: [facility] Work Phone: 06-25-2021 10:42-0400 Body weight 63.46 kg Melodie L Oberhauser Work Phone: [facility] Work Phone: 06-25-2021 10:42-0400 Diastolic blood pressure 63 mm[Hg] Melodie L Oberhauser Work Phone: [facility] Work Phone: 06-25-2021 10:42-0400 Heart rate 68 /min Melodie L Oberhauser Work Phone: [facility] Work Phone: 06-25-2021 10:42-0400 SaO2% (BldA) [Mass fraction] 99 % Melodie L Oberhauser Work Phone: [facility] Work Phone: 06-25-2021 10:42-0400 Systolic blood pressure 104 mm[Hg] Melodie L Oberhauser Work Phone: [facility] Work Phone: 09-17-2020 22:36-0400 Body height 167.6 cm Melodie Oberhauser Other Phone: [facility] 09-17-2020 22:36-0400 Body temperature 99.32 [degF] Melodie Oberhauser Other Phone: [facility] 09-17-2020 22:36-0400 Body weight 68.2 kg Melodie Mujica Other Phone: [facility] 09-17-2020 22:36-0400 Diastolic blood pressure 74 mm[Hg] Melodie Mujica Other Phone: [facility] 09-17-2020 22:36-0400 Heart rate 77 /min Melodie Mujica Other Phone: [facility] 09-17-2020 22:36-0400 Respiratory rate 16 /min Melodie Mujica Other Phone: [facility] 09-17-2020 22:36-0400 SaO2% (BldA) [Mass fraction] 99 % Melodie Mujica Other Phone: [facility] 09-17-2020 22:36-0400 Systolic blood pressure 117 mm[Hg] Melodie Mujica Other Phone: [facility] Encounters Encounter Date Encounter Type Care Provider Facility Start: 03-27-[address] Melodie Mujica Facility:[id number] Start: 03-27-2022 Periodic preventive med est patient 18-39 yrs Melodie Mujica Work Phone: [facility] Work Phone: Start: 06-27-2021 Chart Update Melodie Fonseca user Work Phone: [facility] Work Phone: Start: 06-25-2021 ambulatory Mr. Haja Diop Emanuel Facility:[id number] Start: 06-25-2021 Office outpatient vi sit 15 minutes Melodie Mujica Work Phone: [facility] Work Phone: Start: 09-17-2020 End: 09-17-2020 Emergency department patient visit Balwinder Mendoza [facility] Emergency 13 Start: 05-06-2018 End: 05-07-2018 Patient encounter procedure Adelita Matthew Facility:[facility] Start: 04-22-2018 End: 04-23-2018 Patient encounter procedure Adelita Matthew Facility:[facility] Start: 04-08-2018 End: 04-09-2018 Patient encounter procedure Adelita Matthew Facility:[facility] Start: 03-11-2018 End: 03-12-2018 Patient encounter procedure Adelita Matthew Facility:[facility] Start: 03-01-2018 End: 03-02-2018 Patient encounter procedure Adelita Matthew Facility:[facility] Start: 02-11-2018 End: 02-12-2018 Patient encounter procedure Adelita Matthew Facility:[facility] Start: 02-11-2018 End: 02-12-2018 Patient encounter procedure Adelita Matthew Facility:[facility] Start: 01-14-2018 End: 01-15-2018 Patient encounter procedure Adelita Matthew Facility:[facility] Start: 11-04-2017 Patient encounter procedure Adelita Matthew Facility:[facility] Start: 10-23-2017 End: 10-24-2017 Patient encounter procedure Adelita Matthew Facility:[facility] Start: 10-23-2017 End: 10-24-2017 Patient encounter procedure Adelita Matthew Facility:[facility] Start: 10-20-2017 End: 10-21-2017 Patient encounter procedure Melodie L Oberhauser Facility:[facility] Start: 09-11-2017 End: 09-12-2017 Patient encounter procedure Melodie L Oberhauser Facility:[facility] Start: 09-11-2017 End: 09-12-2017 Patient encounter procedure Melodie L Oberhauser Facility:[facility] Start: 08-26-2017 End: 08-26-2017 Patient encounter procedure Chas A Yash Facility:[facility] Start: 08-21-2017 End: 08-22-2017 Patient encounter procedure Melodie L Oberhauser Facility:[facility] Start: 08-20-2017 End: 08-21-2017 Patient encounter procedure Melodie L Oberhauser Facility:[facility] Start: 08-11-2017 End: 08-12-2017 Patient encounter procedure [facility] L [facility]hauser [facility] Procedures Date Procedure Procedure Detail Performing Clinician section Melodie Gordillo Magnusjocelyn rhauser Work Phone: Immunizations Immunization Date Immunization Notes Care Provider Denzel yang 10-26-2020 tetanus toxoid, reduced diphtheria toxoid, and acellular pertussis vaccine, adsorbed Melodie Gordillo Magnuskrishroman Work Phone: [facility] Work Phone: Payers Date Payer Category Payer Private Health Insurance 1992 Unknown [id number] 2.16.84 0.1.234950.3.579.2. 1992 Unknown [id number] 2.16.84 0.1.599751.3.579.2. 1992 Unknown [id number] 2.16.84 0.1.136140.3.579.2 1992 Unknown [id number] 2.16.84 0.1.481878.3.579.2 1992 Unknown [id number] 2.16.84 0.1.799312.3.579.2 1992 Unknown [id number] 2.16.84 0.1.129294.3.579.2. 1992 Unknown [id number] 2.16.84 0.1.849108.3.579.2 1992 Unknown [id number] 2.16.84 0.1.353312.3.579.2. 1992 Unknown [id number] 2.16.84 0.1.679861.3.579.2. 1992 Unknown [id number] 2.16.84 0.1.106216.3.579.2 1992 Unknown [id number] 2.16.84 0.1.710458.3.579.2. 1992 Unknown [id number] 2.16.84 0.1.864027.3.579.2.717 1992 Unknown [id number] 2.16.84 0.1.195845.3.579.2.7 1992 Unknown [id number] 2.16.84 0.1.963601.3.579.2.7 1992 Unknown [id number] 2.16.84 0.1.945042.3.579.2.717 1992 Unknown [id number] 2.16.84 0.1.273476.3.579.2.7 1992 Unknown [id number] 2.16.84 0.1.449935.3.579.2.7 1992 Unknown [id number] 2.16.84 0.1.429962.3.579.2.7 1992 Unknown [id number] 2.16.84 0.1.321164.3.579.27 1992 Unknown [id number] 2.16. 840.1.072558.3.579.2.356 1992 Unknown [id number] 2.16. 840.1.965441.3.579.2.356 Unknown Unknown [id number] Social History Date Type Detail Facility [facility] Tobacco smoking consumption unknown [facility] [employer] [facility] Work Phone: History of Present [...] No nausea, vomiting, melena, or rectal bleeding. 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 * Patient mentions having 12/26/2020 @ [facility]. * 31 y/o female presents for [...] DATE CREATED AUTHOR AUTHOR'S ORGANIZ ATION 05/08/2018 [facility] DATE CREATED AUTHOR AUTHOR'S ORGANIZ ATION 06/29/2021 [facility] DATE CREATED AUTHOR AUTHOR'S ORGANIZ ATION 03/27/2022 [facility] DATE CREATED AUTHOR AUTHOR'S ORGANIZ ATION 03/27/2022 [employer] <item> Privacy Markings (unrecogniz ed section and [...] BE BASED ON THE PRIMARY CLINICAL RECORDS. [employer] provides no warranty or guarantee of the accuracy or completeness of information in this document.
[2023-05-07] MEDS: Lactated Ringers 1,000 ML 999 ML IV (06:05)
[2023-05-07 06:19] LABS: Absolute Lymphocyte Count 1.57 X10^3/uL (0.83-4.51); Absolute Neutrophil Count 7.5 X10^3/uL (2.0-7.7); Basophil# 0.04 X10^3/uL; Basophil% 0.4 % (0-1); Eosinophil# 0.11 X10^3/uL; Eosinophils% 1.1 % (0-5); Hematocrit 33.2 % (37-47); Hemoglobin 11.1 g/dL (12.0-15.0); Lymphocyte # 1.57 X10^3/ul (0.83-4.51); Lymphocyte % 16.2 % (19-41); Mean Corp Hgb Conc 33.4 g/dL (32-36); Mean Corpuscular Hgb 29.4 pg (27.0-32.0); Mean Corpuscular Volume 87.8 fL (81-99); Mean Platelet Vol. 9.2 fl (6.2-12.0); Monocyte# 0.38 X10^3/uL; Monocyte% 3.9 % (0-10); NRBC Flagged by Analyzer 0 % (0-5); Neutrophil % 77.6 % (47-70); Platelet Count 227 K/mm3 (150-450); RBC Distribution Width CV 13.4 % (11.6-14.6); RBC Distribution Width SD 42.9 fl (35.1-43.9); Red Blood Count 3.78 M/mm3 (4.2-5.4); White Blood Count 9.7 K/mm3 (4.4-11.0)
[2023-05-07] MEDS: Lactated Ringers 1,000 ML 150 ML IV (06:54)
[2023-05-07] MEDS: Sodium Citrate/Citric Acid 30 ML UDC PO (06:54)
[2023-05-07] MEDS: Acetaminophen 500 MG Tablet 1000 MG PO ×4 (06:54→23:52)
[2023-05-07] MEDS: Cefazolin 2 GM in 0.9% Normal Saline (100mL Bag) 100 ML IV (07:13)
[2023-05-07] MEDS: Oxytocin 15 Units/NS 250ml 15 UNITS/250 ML IV.SOLN 83 UNITS IV (08:30)
[2023-05-07 09:07] LABS: Syphilis Antibodies Non-reactive
[2023-05-07] MEDS: Ketorolac 30 MG/ML Syringe IV ×3 (09:28→21:24)
--- NOTE | 2023-05-07 09:30 | HP.PCM.OB_ITS ---
HPI - General General Date of Admission: 05/07/23 HPI Narrative GOOD WEAVER, is a 33 F who presents for [facility] Maternal Data Information ESTRADA Calculator Estimated Delivery Date Method Current WG Current Estimate 05/26/23 LMP (Certain) 37w 3d Other Estimates 05/28/23 Ultrasound #1 37w 1d PFSH PFSH Medical History (Updated 05/08/23 @ 02:[address] Laly Hooks MD) Anxiety and depression delivery delivered depression Home Medications multivitamin no.47-iron fum 27 mg-folate no.1 1 mg-dha 300 mg capsule (PNV-DHA) 1 cap PO DAILY daily 05/29/20 [History Last Taken 05/05/23 06:00] aspirin 81 mg tablet,delayed release 81 mg PO DAILY 04/16/23 [History Last Taken 05/05/23 06:00] naproxen 500 mg tablet 500 mg PO BID PRN PRN Pain #30 tabs 05/08/23 [Rx Last Taken Unknown] oxycodone-acetaminophen 5 mg-325 mg tablet (Percocet) 1 tab PO Q6H PRN pain 7 days #10 tabs 05/08/23 [Rx Last Taken Unknown] Allergy/AdvReac Type Severity Reaction Status Date / Time No Known Allergies Allergy Verified 05/07/23 06:16 Family History Grandmother Breast cancer Surgical History (Updated 05/08/23 @ 02:[address] 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 pets and animals: Yes pets and animals: dog(s) and other details: frog, 2 bunnies history of recent travel: Yes ([place] ) out of state: Yes out of country: No sexually active: Yes Smoking Status: Never smoker second hand exposure: No alcohol intake: current details: social- not while substance use type: does not use well-balanced diet: about half the time caffeine: Yes Type: coffee Number of servings: 1 eating out: 1-3 times/week during the past year weight has: increased > 10 lbs what type of physical activity do you participate in: walking frequency: 3-4 times per week duration: 15-30 minutes/day carol/gnosticist: [employer] seatbelt use: always do you feel safe at home: Yes additional 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 Date Name GA/Weeks Outcome Route Bth Weight Gen Labor Lgth Anes the mehreen Del Locatn Provider FOB 09/19/18 Awilda 41 live - full term 9lbs 2oz Femal e 3 days epidural [facility] Dr. Salina Gautam 12/26/20 Myrna 37 live - full term Female 0 s junaid [facility] SM Delivery Date: 09/19/18 Last Updated by: Noreen Severino IOL d/t oligio; duodenal web. STAT csection due to arrest of descent. HR category 2 with moderate variability during pushing. Prolonged HR deceleration connor during to 60 bpm. Cord around neck x2 loose with compression. Moderate meconium in amniotic fluid. Delivery Date: 12/26/20 Last Updated by: Noreen Severino RLS Visit Details Expected Delivery Route/Plan for rpt section at 36-37 weeks, plan steroids at 35, patient prefers 37 Plans Covid status: [] Flu vaccine: Declines Tdap vaccine: declines Rhogam: na LARC form signed: declined movement and labor precautions reviewed. Problem list reviewed and updated with the most current plan of care details and appropriate orders placed. Relevant counseling for the gestational age provided. Continue routine care and follow up unless otherwise noted in visit notes/problem list details OB Flowsheet Initial Weight: Not Recorded Date -?-?-?-?-?-?-?-?-?-?-?-?- EGA Weight BP Urine Prot -?-?-?-?-?-?-?-?-?-?-?-?- Glucose FHR FuHt Pres Dilation -?-?-?-?-?-?-?-?-?-?-?-?- Effaced St Visit Note 10/16/22 -?-?-?-?-?-?-?-?-?-?-?-?- 8w 2d 145 lb 4 oz 121/80 -?-?-?-?-?-?-?-?-?-?-?-?- 178 -?-?-?-?-?-?-?-?-?-?-?-?- JV- CRL consiste nt with LMP. declines nipt. 11/14/22 -?-?-?-?-?-?-?-?-?-?-?-?- 12w 3d 147 lb 133/77 Negative -?-?-?-?-?-?-?-?-?-?-?-?- Negative 150 -?-?-?-?-?-?-?-?-?-?-?-?- SM- no vb lof cr amping 11/21/22 -?-?-?-?-?-?-?-?-?-?-?-?- 13w 3d 147 lb 8 oz 116/69 -?-?-?-?-?-?-?-?-?-?-?-?- 168 0 -?-?-?-?-?-?-?-?-?-?-?-?- KW-had gush of f luid last night and fearful of ROM. No vb/cramping. FHT on US. spec exam done and urine culture sent. patient reassured. 12/09/22 -?-?-?-?-?-?-?-?-?-?-?-?- 16w 0d 150 lb 2 oz 112/70 Nega tive -?-?-?-?-?-?-?-?-?-?-?-?- Negative 150 -?-?-?-?-?-?-?-?-?-?-?-?- MH-No VB, crampi ng. Feeling flutters. Denies concerns 01/01/23 -?-?-?-?-?-?-?-?-?-?-?-?- 19w 2d 154 lb 128/69 -?-?-?-?-?-?-?-?-?-?-?-?- 150 -?-?-?-?-?-?-?-?-?-?-?-?- KW- no vb/ctx. g ood fm. Anatomy US today. Its a BOY! 01/28/23 -?-?-?-?-?-?-?-?-?-?-?-?- 23w 1d 161 lb 4 oz 115/69 Nega tive -?-?-?-?-?-?-?-?-?-?-?-?- Negative 144 24 -?-?-?-?-?-?-?-?-?-?-?-?- JV- no complaint s at this time. rpt cs schedule request sent. pt wants to wait for 37 weeks. plan for steroids at 35 weeks . 03/11/23 -?-?-?-?-?-?-?-?-?-?-?-?- w 1d 167 lb 8 oz 119/76 Nega tive -?-?-?-?-?-?-?-?-?-?-?-?- Negative 143 32 -?-?-?-?-?-?-?-?-?-?-?-?- JV- no lof, vagi nal bleeding, or dec fm. 03/27/23 -?-?-?-?-?-?-?-?-?-?-?-?- 31w 3d 173 lb 115/67 -?-?-?-?-?-?-?-?-?-?-?-?- 145 32 -?-?-?-?-?-?-?-?-?-?-?-?- SM- no vb lof go od fm n oregular ctx discussed delivery planning. 04/10/23 -?-?-?-?-?-?-?-?-?-?-?-?- 33w 3d 176 lb 102/70 Negative -?-?-?-?-?-?-?-?-?-?-?-?- Negative 135 35 -?-?-?-?-?-?-?-?-?-?-?-?- SM- no vb lof go od fm no regular ctx 04/16/23 -?-?-?-?-?-?-?-?-?-?-?-?- 34w 2d 175 lb 130/82 Negative -?-?-?-?-?-?-?-?-?-?-?-?- Negative 150 36 -?-?-?-?-?-?-?-?-?-?-?-?- KW- no vb/lof/ct x. good fm. had covid over the weekend. taking 81mg asa. had betamethasone x 2 over weekend. c/s scheduled with . no concerns today 04/30/23 -?-?-?-?-?-?-?-?-?-?-?-?- 36w 2d 177 lb 116/68 -?-?-?-?-?-?-?-?-?-?-?-?- 140 38 -?-?-?-?-?-?-?-?-?-?-?-?- SM- no vb lof go od fm no regular ctx NST FHR Rate Baby A Baseline: 130 Variability:: Moderate Accelerations:: 15 x 15 Decelerations:: None NST Reactive:: Yes FHR Category:: Category I Uterine Activity:: irregular ROS Constitutional Constitutional: Reports systems reviewed and no addt'l complaints, except as documented Eyes Eyes: Denies change in vision ENT HEENT: Reports systems reviewed and no addt'l complaints, except as documented; Denies headache(s) Cardiovascular Cardiovascular: Reports systems reviewed and no addt'l complaints, except as documented; Denies chest pain or dyspnea Respiratory/Chest Respiratory/Chest: Reports systems reviewed and no addt'l complaints, except as documented Gastrointestinal Gastrointestinal: Reports systems reviewed and no addt'l complaints, except as documented; Denies abdominal pain Genitourinary Genitourinary: Reports systems reviewed and no addt'l complaints, except as documented, contractions Details: present (irregular) and movement Details: present; Denies dysuria or genital lesions Musculoskeletal Musculoskeletal: Reports systems reviewed and no addt'l complaints, except as documented Neurologic Neurologic: Reports systems reviewed and no addt'l complaints, except as documented Endocrine Endocrinology: Reports systems reviewed and no addt'l complaints, except as documented Vital Signs Vital Signs Vital Signs: 05/07/23 05:54 05/07/23 05:54 05/07/23 05:54 Temperature Temperature Source Temporal Pulse Rate 104 H Respiratory Rate Respiratory Pattern Blood Pressure 128/63 H Blood Pressure Mean BP Systolic 128 BP Diastolic 63 Blood Pressure Source Blood Pressure Position Blood Pressure Location Baseline BP Pulse Ox Oxygen Delivery Method 05/07/23 05:54 05/07/23 05:54 05/07/23 05:54 Temperature 98.2 F Temperature Source Pulse Rate Respiratory Rate 18 Respiratory Pattern Blood Pressure Blood Pressure Mean BP Systolic BP Diastolic Blood Pressure Source Blood Pressure Position Blood Pressure Location Baseline BP Pulse Ox 100 Oxygen Delivery Method 05/07/23 08:30 05/07/23 06:05 05/07/23 08:30 Temperature 98.2 F 97.9 F Temperature Source Temporal Temporal Temporal Pulse Rate 104 H 75 Respiratory Rate 16 14 Respiratory Pattern Normal Blood Pressure 128/63 H 94/55 L Blood Pressure Mean 84 68 BP Systolic BP Diastolic Blood Pressure Source Monitor Monitor Blood Pressure Position Semi-Fowlers Semi-Fowlers Blood Pressure Location Right Arm Right Arm Baseline BP 128/63 Pulse Ox 100 99 Oxygen Delivery Method Room Air Room Air 05/07/23 05:55 05/07/23 08:25 05/07/23 08:26 Temperature Temperature Source Pulse Rate 77 Respiratory Rate Respiratory Pattern Blood Pressure 94/55 L Blood Pressure Mean 68 BP Systolic BP Diastolic Blood Pressure Source Blood Pressure Position Blood Pressure Location Baseline BP Pulse Ox 100 98 99 Oxygen Delivery Method 05/07/23 08:30 05/07/23 08:45 05/07/23 09:00 Temperature Temperature Source Pulse Rate 73 73 74 Respiratory Rate 18 15 17 Respiratory Pattern Blood Pressure 93/78 103/69 106/70 Blood Pressure Mean 84 80 81 BP Systolic
--- NOTE | 2023-05-07 09:30 | PCM.HP.OB ---
HPI - General General Date of Admission: 05/07/23 HPI Narrative GOOD WEAVER, is a 33 F [facility] Maternal Data Information ESTRADA Calculator Estimated Delivery Date Method Current WG Current Estimate 05/26/23 LMP (Certain) 37w 3d Other Estimates 05/28/23 Ultrasound #1 37w 1d PFSH PFSH Medical History (Updated 05/08/23 @ 02:[address] Laly Hooks MD) Anxiety and depression delivery delivered depression Home Medications multivitamin no.47-iron fum 27 mg-folate no.1 1 mg-dha 300 mg capsule (PNV-DHA) 1 cap PO DAILY daily 05/29/20 [History Last Taken 05/05/23 06:00] aspirin 81 mg tablet,delayed release 81 mg PO DAILY 04/16/23 [History Last Taken 05/05/23 06:00] naproxen 500 mg tablet 500 mg PO BID PRN PRN Pain #30 tabs 05/08/23 [Rx Last Taken Unknown] oxycodone-acetaminophen 5 mg-325 mg tablet (Percocet) 1 tab PO Q6H PRN pain 7 days #10 tabs 05/08/23 [Rx Last Taken Unknown] Allergy/AdvReac Type Severity Reaction Status Date / Time No Known Allergies Allergy Verified 05/07/23 06:16 Family History Grandmother Breast cancer Surgical History (Updated 05/08/23 @ 02:[address] 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 pets and animals: Yes pets and animals: dog(s) and other details: frog, 2 bunnies history of recent travel: Yes ([place] ) out of state: Yes out of country: No sexually active: Yes Smoking Status: Never smoker second hand exposure: No alcohol intake: current details: social- not while substance use type: does not use well-balanced diet: about half the time caffeine: Yes Type: coffee Number of servings: 1 eating out: 1-3 times/week during the past year weight has: increased > 10 lbs what type of physical activity do you participate in: walking frequency: 3-4 times per week duration: 15-30 minutes/day carol/hoahaoism: Hoahaoism seatbelt use: always do you feel safe at home: Yes additional social history: [employer] Patient works at [employer] History 3 Elective abortions Hx Para 2 Spontaneous abortions Hx # Term Pregnancies Ectopic pregnancies Hx # Pregnancies Multiple births # of living children 2 Past Pregnancies Del. Date Name GA/Weeks Outcome Route Bth Weight Gen Labor Lgth Anesthesia Del Locatn Provider FOB 09/19/18 Awilda 41 live - full term 9lbs 2oz Female 3 days epidural [facility] Dr. Salina Gautam 12/26/20 Myrna 37 live - full term Female 0 spinal [facility] SM Delivery Date: 09/19/18 Last Updated by: Noreen Severino IOL d/t oligio; duodenal web. STAT csection due to arrest of descent. HR category 2 with moderate variability during pushing. Prolonged HR deceleration connor during to 60 bpm. Cord around neck x2 loose with compression. Moderate meconium in amniotic fluid. Delivery Date: 12/26/20 Last Updated by: Noreen Severino RLTCS Visit Details Expected Delivery Route/Plan for rpt section at 36-37 weeks, plan steroids at 35, patient prefers 37 Plans Covid status: [] Flu vaccine: Declines Tdap vaccine: declines Rhogam: na LARC form signed: declined movement and labor precautions reviewed. Problem list reviewed and updated with the most current plan of care details and appropriate orders placed. Relevant counseling for the gestational age provided. Continue routine care and follow up unless otherwise noted in visit notes/problem list details OB Flowsheet Initial Weight: Not Recorded Date <del>?</del> EGA Weight BP Urine Prot <del>?</del> Glucose FHR FuHt Pres Dilation <del>?</del> Effaced St Visit Note 10/16/22 <del>?</del> 8w 2d 145 lb 4 oz 121/80 <del>?</del> 178 <del>?</del> JV- CRL consistent with LMP. declines nipt. 11/14/22 <del>?</del> 12w 3d 147 lb 133/77 Negative <del>?</del> Negative 150 <del>?</del> SM- no vb lof cramping 11/21/22 <del>?</del> 13w 3d 147 lb 8 oz 116/69 <del>?</del> 168 0 <del>?</del> KW-had gush of fluid last night and fearful of ROM. No vb/cramping. FHT on US. spec exam done and urine culture sent. patient reassured. 12/09/22 <del>?</del> 16w 0d 150 lb 2 oz 112/70 Negative <del>?</del> Negative 150 <del>?</del> MH-No VB, cramping. Feeling flutters. Denies concerns 01/01/23 <del>?</del> 19w 2d 154 lb 128/69 <del>?</del> 150 <del>?</del> KW- no vb/ctx. good fm. Anatomy US today. Its a BOY! 01/28/23 <del>?</del> 23w 1d 161 lb 4 oz 115/69 Negative <del>?</del> Negative 144 24 <del>?</del> JV- no complaints at this time. rpt cs schedule request sent. pt wants to wait for 37 weeks. plan for steroids at 35 weeks . 03/11/23 <del>?</del> 29w 1d 167 lb 8 oz 119/76 Negative <del>?</del> Negative 143 32 <del>?</del> JV- no lof, vaginal bleeding, or dec fm. 03/27/23 <del>?</del> 31w 3d 173 lb 115/67 <del>?</del> 145 32 <del>?</del> SM- no vb lof good fm n oregular ctx discussed delivery planning. 04/10/23 <del>?</del> 33w 3d 176 lb 102/70 Negative <del>?</del> Negative 135 35 <del>?</del> SM- no vb lof good fm no regular ctx 04/16/23 <del>?</del> 34w 2d 175 lb 130/82 Negative <del>?</del> Negative 150 36 <del>?</del> KW- no vb/lof/ctx. good fm. had covid over the weekend. taking 81mg asa. had betamethasone x 2 over weekend. c/s scheduled with SM. no concerns today 04/30/23 <del>?</del> 36w 2d 177 lb 116/68 <del>?</del> 140 38 <del>?</del> SM- no vb lof good fm no regular ctx NST FHR Rate Baby A Baseline: 130 Variability:: Moderate Accelerations:: 15 x 15 Decelerations:: None NST Reactive:: Yes FHR Category:: Category I Uterine Activity:: irregular ROS Constitutional Constitutional: Reports systems reviewed and no addt'l complaints, except as documented Eyes Eyes: Denies change in vision ENT HEENT: Reports systems reviewed and no addt'l complaints, except as documented; Denies headache(s) Cardiovascular Cardiovascular: Reports systems reviewed and no addt'l complaints, except as documented; Denies chest pain or dyspnea Respiratory/Chest Respiratory/Chest: Reports systems reviewed and no addt'l complaints, except as documented Gastrointestinal Gastrointestinal: Reports systems reviewed and no addt'l complaints, except as documented; Denies abdominal pain Genitourinary Genitourinary: Reports systems reviewed and no addt'l complaints, except as documented, contractions Details: present (irregular) and movement Details: present; Denies dysuria or genital lesions Musculoskeletal Musculoskeletal: Reports systems reviewed and no addt'l complaints, except as documented Neurologic Neurologic: Reports systems reviewed and no addt'l complaints, except as documented Endocrine Endocrinology: Reports systems reviewed and no addt'l complaints, except as documented Vital Signs Vital Signs Vital Signs: 05/07/23 05:54 05/07/23 05:54 05/07/23 05:54 Temperature Temperature Source Temporal Pulse Rate 104 H Respiratory Rate Respiratory Pattern Blood Pressure 128/63 H Blood Pressure Mean BP Systolic 128 BP Diastolic 63 Blood Pressure Source Blood Pressure Position Blood Pressure Location Baseline BP Pulse Ox Oxygen Delivery Method 05/07/23 05:54 05/07/23 05:54 05/07/23 05:54 Temperature 98.2 F Temperature Source Pulse Rate Respiratory Rate 18 Respiratory Pattern Blood Pressure Blood Pressure Mean BP Systolic BP Diastolic Blood Pressure Source Blood Pressure Position Blood Pressure Location Baseline BP Pulse Ox 100 Oxygen Delivery Method 05/07/23 08:30 05/07/23 06:05 05/07/23 08:30 Temperature 98.2 F 97.9 F Temperature Source Temporal Temporal Temporal Pulse Rate 104 H 75 Respiratory Rate 16 14 Respiratory Pattern Normal Blood Pressure 128/63 H 94/55 L Blood Pressure Mean 84 68 BP Systolic BP Diastolic Blood Pressure Source Monitor Monitor Blood Pressure Position Semi-Fowlers Semi-Fowlers Blood Pressure Location Right Arm Right Arm Baseline BP 128/63 Pulse Ox 100 99 Oxygen Delivery Method Room Air Room Air 05/07/23 05:55 05/07/23 08:25 05/07/23 08:26 Temperature Temperature Source Pulse Rate 77 Respiratory Rate Respiratory Pattern Blood Pressure 94/55 L Blood Pressure Mean 68 BP Systolic BP Diastolic Blood Pressure Source Blood Pressure Position Blood Pressure Location Baseline BP Pulse Ox 100 98 99 Oxygen Delivery Method 05/07/23 08:30 05/07/23 08:45 05/07/23 09:00 Temperature Temperature Source Pulse Rate 73 73 74 Respiratory Rate 18 15 17 Respiratory Pattern Blood Pressure 93/78 103/69 106/70 Blood Pressure Mean 84 80 81 BP Systolic BP Diastolic Blood Pressure Source Blood Pressure Position Blood Pressure Location Baseline BP Pulse Ox 99 100 100 Oxygen Delivery Method 05/07/23 09:15 05/07/23 09:16 Temperature Temperature Source Pulse Rate 70 76 Respiratory Rate 14 14 Respiratory Pattern Blood Pressure 116/71 Blood Pressure Mean 85 BP Systolic BP Diastolic Blood Pressure Source Blood Pressure Position Blood Pressure Location Baseline BP Pulse Ox 99 99 Oxygen Delivery Method Weight Weight: 180 lb Body Mass Index (BMI) 29.0 Physical Exam Const alert, oriented x3, no apparent distress and healthy appearing HEENT normocephalic and moist oral mucous membranes Head and Scalp: atraumatic Neck full ROM, no lymphadenopathy, supple and thyroid normal General: trachea midline Lymph Lymphatic: no lymphadenopathy noted Chest inspection of chest normal Resp normal respiratory effort Cardio regular rate GI normal to inspection, nondistended, normoactive bowel sounds, soft to palpation and non-tender Inspection: gravid external exam normal Manual OB Exam: estimated gestational size appropriate, presentation cephalic, dilated, effaced and station Extremity normal to inspection General Extremity: Negative for edema Skin no rashes or lesions noted Neuro no focal motor deficits and deep tendon reflexes 2+ bilaterally Motor Exam: strength 5/5 throughout and clonus absent Psych mental status grossly normal Labs Labs Labs: Blood Type A POSITIVE Antibody Screen NEGATIVE Hct 33.2 % (37-47) L Hgb 11.1 g/dL (12.0-15.0) L Pap Smear Negative Obstetrics Ultrasound Syphilis Total Ab Non-reactive Rubella IgG Antibody Reactive (Nonreactive) Hep Bs Antigen Non-Reactive (Nonreactive) Hepatitis C Antibody Non-Reactive (Nonreactive) Chlamydia DNA (KEVIN) Negative (Negative) N.gonorrhoeae DNA (KEVIN) Negative (Negative) HIV 1&2 Antibody Non-Reactive (Nonreactive) Glucose 1 Hr 50 gm 129 mg/dL (70-140) Group B Strep DNA Negative (Negative) Rhogam given: No Assessment & Plan (1) COVID-19 affecting in third trimester: COMMENT: baby asa started. RTO on day 6 of covid infection with a mask. (2) History of delivery: COMMENT: classical uterine incision- steroids at 35 weeks, deliver 37 weeks, RCS scheduled 05-07-23. steroids given 33 weeks 5 days (for early contractions - found to be covid infection) (3) Supervision of high-risk : QUALIFIERS: Trimester: second trimester Qualified Code(s): O09.92 - Supervision of high risk , unspecified, second trimester COMMENT: PRR , ESTRADA 05/26/23 boy PC Myrna Kaiser Dain (4) : QUALIFIERS: Weeks of gestation: 36 weeks Qualified Code(s): Z3A.36 - 36 weeks gestation of COMMENT: Neg GBS. Declines genetic, ntd, & carrier testing. nl anatomy. (5) Enlarged thyroid: COMMENT: labs nl, US no mass (6) Status post repeat low transverse section: COMMENT: SM RLTCS boy 37 PLAN: Plan for RLTCS
[2023-05-07] MEDS: Lactated Ringers 1,000 ML 100 ML IV (11:32)
--- NOTE | 2023-05-07 18:02 | OP.PCM_ITS ---
Assessment & Plan (1) Status post repeat low transverse section: COMMENT: SM RLTCS boy 37 (2) COVID-19 affecting in third trimester: COMMENT: baby asa started. RTO on day 6 of covid infection with a mask. (3) History of delivery: COMMENT: classical uterine incision- steroids at 35 weeks, deliver 37 weeks, RCS scheduled 05-07-23. steroids given 33 weeks 5 days (for early contractions - found to be covid infection) (4) Supervision of high-risk : QUALIFIERS: Trimester: second trimester Qualified Code(s): O09.92 - Supervision of high risk , unspecified, second trimester COMMENT: PRR , ESTRADA 05/26/23 boy PC Myrna Kaisre Dain (5) : QUALIFIERS: Weeks of gestation: 36 weeks Qualified Code(s): Z3A.36 - 36 weeks gestation of COMMENT: Neg GBS. Declines genetic, ntd, & carrier testing. nl anatomy. Maternal Data Information ESTRADA Calculator Estimated Delivery Date Method Current WG Current Estimate 05/26/23 LMP (Certain) 37w 2d Other Estimates 05/28/23 Ultrasound #1 37w 0d Final ESTRADA Source: LMP Details Operative Information Date of Procedure: 05/07/23 Pre-Operative Diagnosis: Previous Post-Operative Diagnosis: same Indications for : Repeat Elective Indications Narrative: Surgeon: Laly Hooks MD Classification: Scheduled Procedure Type: low transverse teacher drama #2: Pato Mendiola Type of Anesthesia: Spinal Special Medications: none Antibiotic Given: Ancef 2 grams IV x1 Drain: Turner to straight drain Estimated Blood Loss: 800 Fluids Replaced: crystalloid Procedure Start Time: 07:35 Procedure Stop Time: 08:15 Findings Description of Procedure: Spinal anesthesia was placed without difficulty. Turner catheter was placed. The patient was placed in the dorsal supine position with leftward tilt. Patient was prepped and draped in the normal sterile fashion. Pfannenstiel skin incision was made with the scalpel and carried through to the underlying layer of fascia with the scalpel. Fascia was nicked in the midline and the incision extended laterally. The rectus bellies were dissected off superiorly and inferiorly with out complication both sharply and bluntly. The peritoneum was entered digitally. The incision was stretched and a low transverse uterine incision was made with the scalpel. The infant's head was delivered atraumatically followed by the anterior and posterior shoulders without complication the rest of the infant delivered. The cord was clamped and cut and the infant was handed off to awaiting nurse. The placenta was delivered spontaneously immediately following and was noted to be intact and have a three- vessel cord. The uterus was exteriorized cleared of all clots and debris, and the incision was closed in a single layer closure using #1 Monocryl. The ovaries and fallopian tubes were noted to be within normal limits. The uterus was returned to the maternal abdomen and gutters were cleared of all clots and debris. The peritoneum was closed with 3-0 Monocryl in a running fashion. Gloves were changed prior to fascial closure. Fascia was closed with 0 PDS in a running fashion. Subcutaneous tissue was copiously irrigated and the skin was closed with 3-0 Monocryl in a subcuticular fashion. Mepilex dressing was applied without complication. Patient was taken to recovery in stable condition. Amniotic Membrane Rupture Type: Artificial Amniotic Fluid Description: Clear Placenta Disposition: [facility] Cord Vessel Description: 3 Vessels Delayed Cord Clamping: Yes Complications Risks of Surgery Discussed w/Patient: Bleeding, Infection, Need for Future C- Sections and Injury to surrounding structure(s) including bowel and bladder Vaginal Delivery Complication Complications: None Admit VTE Documentation VTE Present on Admission: No VTE Mechan Device Prophylaxis: SCD's Procedures Urinary/Genital [id number]: [id number] Delivery [facility]
--- NOTE | 2023-05-07 18:05 | DCINST_ITS ---
Discharge Instructions Diet Discharge Diet: No restrictions Activity Discharge Activity: May Not Drive (for 2 weeks or while taking narcotic pain medications.), May Shower and May Take a Tub Bath (in 7 days) May shower in (days): 0 May resume sexual activity in: 4-6 weeks Weight Bearing Status: Full weight bearing Lifting Restrictions: 20 pounds Dressing / Incision Call your doctor if your incision/area has: Continuous Slow Oozing, Sudden Increased Bleeding, Increased Pain/ Swelling, Increased Redness and Foul Smelling Discharge Call your doctor if you observe: Fever of 101 or Higher and Using more than 1 pad per hour (for 2 hours) Suture Line Care: Avoid Pulling/Pushing and Avoid Pinching/Bending Cleanse incision/area with: Soap & Water and Keep Dressing Clean & Dry Follow Up Care Please Follow Up With: Laly Hooks MD When: Call [phone] to make an appointment for an incision check in 1-2 weeks. Test Results: Test results from this visit will be discussed in further detail at your follow- up appointment, if applicable. Discharge Plan Admission Admit Date/Time: 05/07/23 05:45 Attending Provider: Catherine Ingram Primary Care Provider: Melodie Mujica Discharge Orders/Prescriptions Prescriptions: New oxycodone-acetaminophen [Percocet] 5-325 mg tablet 1 tab PO Q6H PRN (Reason: pain) 7 Days Qty: 10 0RF naproxen [naproxen] 500 mg tablet 500 mg PO BID PRN PRN (Reason: Pain) Qty: 30 1RF No Action PNV-DHA 27 mg iron-1 mg -300 mg capsule 1 cap PO DAILY aspirin 81 mg tablet,delayed release (DR/EC) 81 mg PO DAILY Referrals / Follow Up: Melodie Mujica DO [Primary Care Provider] - Disposition Disposition (needs filled in before D/C Order can be placed): Home, Self Care
--- NOTE | 2023-05-07 18:36 | NURSING ---
1400 pt oob up to chair- pt gait steady- walking around in room
--- NOTE | 2023-05-07 18:37 | NURSING ---
1600 pt burrows cath dc'ed pt demonstrated pericare in the bathroom- pt up and moving around scds and pulse ox left off while up
[2023-05-07] MEDS: Enoxaparin 40 MG/0.4 ML Syringe SC (21:25)
[2023-05-07] MEDS: 0.9% Saline Lock 10 ML Syringe IV (21:25)
[2023-05-08] MEDS: 0.9% Saline Lock 10 ML Syringe IV (03:47)
[2023-05-08] MEDS: Ketorolac 30 MG/ML Syringe IV (03:47)
[2023-05-08 03:48] VITALS: BP 109/70; PULSE 64; RESP 16; TEMP 36.6; O2SAT 98
[2023-05-08] MEDS: Acetaminophen 500 MG Tablet 1000 MG PO ×2 (06:01→11:35)
[2023-05-08 06:14] LABS: Hematocrit 29.3 % (37-47); Hemoglobin 9.4 g/dL (12.0-15.0); Mean Corp Hgb Conc 32.1 g/dL (32-36); Mean Corpuscular Hgb 28.6 pg (27.0-32.0); Mean Corpuscular Volume 89.1 fL (81-99); Mean Platelet Vol. 9.1 fl (6.2-12.0); Platelet Count 198 K/mm3 (150-450); RBC Distribution Width CV 13.4 % (11.6-14.6); RBC Distribution Width SD 43.9 fl (35.1-43.9); Red Blood Count 3.29 M/mm3 (4.2-5.4); White Blood Count 10.6 K/mm3 (4.4-11.0)
--- NOTE | 2023-05-08 07:18 | PCM.PN.OB ---
Subjective Subjective Patient doing well without complaints. Tolerating PO. Ambulating and voiding without difficulty. feeding well. Denies chest pain, shortness of breath, calf pain/swelling, fevers, chills, lightheadedness. Objective Data Objective Data Vital Signs: Vital Signs Temp Pulse Resp BP Pulse Ox O2 Del Method 97.9 F 64 16 109/70 98 Room Air 05/08/23 03:48 05/08/23 03:48 05/08/23 03:48 05/08/23 03:48 05/08/23 03:48 05/08/23 03:48 Oxygen Delivery Method Room Air Weight: 180 lb Body Mass Index (BMI) 29.0 Intake & Output: Intake and Output for Last 24 Hours 05/06/23 05/07/23 05/08/23 23:59 23:59 23:59 Intake Total 2525.02 / 2525.02 Output Total 1999 / 1999 600 / 600 Balance 525.02 / 525.02 -600 / -600 Lab / Micro Data 05/08/23 06:05 Labs: Laboratory Results - last 24 hr 05/07/23 06:05: Syphilis Total Ab Non-reactive 05/08/23 06:05: WBC 10.6, RBC 3.29 L, Hgb 9.4 L, Hct 29.3 L, MCV 89.1, MCH 28.6, MCHC 32.1, RDW Std Deviation 43.9, RDW Coeff of Camryn 13.4, Plt Count 198, MPV 9.1 ROS Constitutional Constitutional: Reports systems reviewed and no addt'l complaints, except as documented Cardiovascular Cardiovascular: Reports systems reviewed and no addt'l complaints, except as documented Respiratory/Chest Respiratory/Chest: Reports systems reviewed and no addt'l complaints, except as documented Gastrointestinal Gastrointestinal: Reports systems reviewed and no addt'l complaints, except as documented Physical Exam Const alert, oriented x3 and no apparent distress HEENT Head and Scalp: atraumatic Resp normal respiratory effort GI soft to palpation and non-tender Inspection: incision intact, healing well and drainage (none) Bimanual Exam - Vag & Uterus: uterus non-tender Uterus Palpation: uterus fundus firm (below Umbilicus) Assessment & Plan (1) Status post repeat low transverse section: COMMENT: RLTCS boy 37 PLAN: Plan s/p LTCS PPD # 1 1. routine post care 2. breast feeding- support given 3. rh positive 4. rubella immune
[2023-05-08 08:15] VITALS: BP 110/69; PULSE 70; RESP 16; TEMP 36.6; O2SAT 97
[2023-05-08] MEDS: Senna/Docusate Sodium 1 Tablet PO (09:49)
[2023-05-08] MEDS: Naproxen 500 MG Tablet PO ×2 (09:49→14:32)
--- NOTE | 2023-05-08 10:30 | CASEMGMT ---
Social Work Assessment Labor and Delivery Unit Patient Address:[address] [place] [address] [place] [address] Phone number: [phone] Date of Referral: 05/07/23 Time of Referral:? 1154 Referred By: Laly Hooks Date of Intervention: ??05/08/23 Time of Intervention:? 929 Reason for Referral:? mental health Sw completed chart review and acknowledges social work consult due to maternal mental health history. Sw presented to bedside and introduced self to mother of baby (JETT- Tanja) and father of baby (MUKUL- Dain). Sw explained reason for sw involvement. Sw completed psychosocial assessment and provided literature and support. History obtained from: medical records, MOB and FOJanki Household composition: Currently residing in the family home is MUKUL FRAUSTO, their two older daughters (Awilda, : 09/19/18, and Myrna, : 12/26/20) and now baby. Parents deny any issues or concerns with housing. Patient's parent/guardian status:? ?MOB states that she and MUKUL met in college and have been together for 10 years. No concerns regarding domestic violence or intimate partner violence at this time. Medical History: JETT is 33 year old female who is 3, para 2- now 3 following labor and delivery of . JETT received routine care during with [facility]. JETT presented to hospital on 05/07/23 for scheduled repeat at 37 weeks gestation. Baby boy, named Manuel Gautam, was born weighing 7lb 8oz and his apgars were 9 and 9 at one and five minutes of life, respectfully. JETT states that she is breast feeding and it is going well. JETT states that baby will be followed by Dr. Donaldson for pediatrics. Educational Status:Both parents obtained college degree from [employer]. No issues with reading, learning or comprehension. Financial Status: Both parents are gainfully employed outside of the home. MUKUL just purchased a [employer] earlier this year, which he manages. 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 Infant Supplies:?? Parents have obtained all necessary baby supplies, including: car seat, safe sleep space, clothes, diapers, wipes and a breast pump. Childcare/Caregiver(s):? MOB states that while she is on maternity leave she will be the primary caregiver along with FOB when not at work. MOB states that her sister who lives in [place] will also be coming to stay with them for three weeks to help out. When both parents have returned to work they have a material scheduler that comes to their home. Transportation:?? Both parents drive and have reliable means of transportation. No barriers at this time. Programs/Agencies Involved: ???Parents are not connected to any community resources that help them financially. Children Services/Legal Issues:??? No history of involvement, no issues or concerns warranting referral at this time. Behavioral Health Issues: ??Mental Health History: MUKUL has not been diagnosed with any mental health diagnoses. MOB states that she has been diagnosed with anxiety, depression and did experience anxiety following her first and second deliveries. MOB states that her first daughter required a hospitalization in the NICU after delivery for two weeks. MOB states that during that time and after discharge their daughter still had some medical issues that went unresolved until she was [age] year old. MOB states that she contributes her mental health issues due to the concerns of the baby at that time. MOB states that when her second daughter was born she had a lot of anxiety and insomnia- however she attributes this to having a baby after experiencing all the concerns of the first baby. MOB states that she is receptive of signs and symptoms to be on the lookout for regarding baby blues and depression and anxiety. ??? Substance Use History:??JETT denies substance use prior to and during . Family History:?MOB states that both of her grandpas struggled with alcoholism.? Drug Screens: ??NO drug screens observed during chart review. Family/Social Stressors: None reported at this time. Support Systems: MOB states that MUKUL is her biggest support person. FOB states that he would be able to recognize if MOB were to struggle with her mental health during this journey. FOB states that he would know how to support her if she were to struggle. Depression/Shaken Baby/Safe Sleeping:? Sw educated parents on signs and symptoms of baby blues and depression and anxiety. Parents express understanding. Sw educated parents on shaken baby prevention and ABCs of safe sleep. Parents express understanding. ASSESSMENT:? MOB and baby admitted following labor and delivery. MOB talkative and open regarding her mental health history following the prior two deliveries. MOB made and maintained eye contact throughout completion of psychosocial assessment. FOB observed to be attentive and supportive of MOB and her needs. MOB observed to provide loving and appropriate hands on care to . Parents receptive to sw involvement and support. PLAN:? MOB and baby to be discharged when medically ready. ?No other services requested or indicated. Venkata Fernández, [employer] INSPECTOR, [employer]ER
[2023-05-08 14:25] VITALS: BP 118/76; PULSE 76; RESP 16; TEMP 36.8; O2SAT 98
--- NOTE | 2023-05-08 14:44 | NURSING ---
patient's dressing was saturated with water after a shower, mepilex changed and incision dried off with sterile gauze
== END 2023-05-08 15:15 | disposition home or self-care (01) | DRG 788 ==
PROVIDERS: Obstetrics & Gynecology; Admitting Provider Obstetrics & Gynecology; PCP Internal Medicine; Visit Provider Obstetrics & Gynecology
PROC: 10D00Z1 Extraction of Products of Conception, Low, Open Approach (ICD-10-PCS; CPT 59514; principal; 2023-05-07 07:00)
DX: O34.212 Maternal care for vertical scar from previous cesarean delivery (principal); Z37.0 Single live birth; Z79.82 Long term (current) use of aspirin; Z3A.37 37 weeks gestation of pregnancy; Z86.16 Personal history of COVID-19
CPT/HCPCS: 59025; 59050; 85025; 85027; 86780; 86850; 86900; 86901; 99221; J7120; A4216; G0378

== ENCOUNTER → 2023-06-15 | Outpatient (CLI) | payer OTHER, SELFPAY ==
[2023-06-15 11:50] LABS: hCG Titer Quant., Serum < 1 mIU/mL (1-3)
[2023-06-15 11:55] LABS: T4 Free Direct 0.99 ng/dL (0.76-1.46); Thyroid Stim Hormone (TSH) 0.83 uIU/mL (0.358-3.74)
== END | disposition home or self-care (01) ==
LOC: PAVLAB 10:59
PROVIDERS: PCP Internal Medicine; Referring Provider Obstetrics & Gynecology; Visit Provider Obstetrics & Gynecology
DX: N93.9 Abnormal uterine and vaginal bleeding, unspecified (principal)
CPT/HCPCS: 36415; 84439; 84443; 84702

== ENCOUNTER → 2024-04-19 | Outpatient (CLI) | payer OTHER, SELFPAY ==
[2024-04-19 14:23] LABS: Absolute Neutrophil Count 3.6 X10^3/uL (2.0-7.7); Basophil# 0.05 X10^3/uL; Basophil% 0.9 % (0-1); Eosinophil# 0.12 X10^3/uL; Eosinophils% 2.1 % (0-5); Hematocrit 41.6 % (37-47); Hemoglobin 13.4 g/dL (12.0-15.0); Lymphocyte % 29.5 % (19-41); Mean Corp Hgb Conc 32.2 g/dL (32-36); Mean Corpuscular Hgb 28.3 pg (27.0-32.0); Mean Corpuscular Volume 87.9 fL (81-99); Monocyte# 0.34 X10^3/uL; Monocyte% 5.9 % (0-10); NRBC Flagged by Analyzer 0 % (0-5); Neutrophil # 3.55 X10^3/uL (2.7-7.7); Neutrophil % 61.4 % (47-70); Platelet Count 364 K/mm3 (150-450); Red Blood Count 4.73 M/mm3 (4.2-5.4); White Blood Count 5.8 K/mm3 (4.4-11.0)
[2024-04-19 14:44] LABS: ALB/GLOB Ratio 1.1 RATIO (0.9-2.4); AST(SGOT) 14 U/L (15-37); Alanine Aminotransfer ALT/SGPT 18 U/L (13-56); Albumin, Serum 4.2 g/dL (3.2-5.0); Alkaline Phosphatase 71 U/L (45-117); Anion Gap 8 (5-15); BUN 18 mg/dL (7-18); BUN/Creat Ratio 23.1 RATIO (10-20); Calcium,Total 9.1 mg/dL (8.5-10.1); Chloride 103 mmol/L (98-107); Creatinine, Serum 0.78 mg/dL (0.55-1.02); EST Glomerular Filtration Rate 91 mL/min (>60); Est Glom Filt Rate - Afr Amer 110 mL/min (>60); Ferritin 20 ng/mL (8-252); Globulin 3.7 g/dL (2.2-4.2); Glucose 85 mg/dL (74-106); Iron 130 ug/dL (50-170); Protein, Total 7.9 g/dL (6.4-8.2); Sodium Level 139 mmol/L (136-145); T4 Free Direct 0.91 ng/dL (0.76-1.46)
== END | disposition home or self-care (01) ==
LOC: LABSPEC 12:58
PROVIDERS: PCP Internal Medicine; Referring Provider Nurse Practitioner Family; Visit Provider Nurse Practitioner Family
DX: R53.82 Chronic fatigue, unspecified (principal); R45.4 Irritability and anger; K21.9 Gastro-esophageal reflux disease without esophagitis; F41.9 Anxiety disorder, unspecified; R10.30 Lower abdominal pain, unspecified
CPT/HCPCS: 80053; 82728; 83540; 84439; 84443; 84481; 85025